=== PATIENT | male | born 1935 | race Caucasian/White ===

== ENCOUNTER 2023-11-25 21:27 | Inpatient (IN) | payer OTHER, SELFPAY ==
[2023-11-25] VITALS (9 sets, daily range): BP systolic 117–149; BP diastolic 63–69; BMI 27.5; BMI 28.8
--- NOTE | 2023-11-25 19:06 | ED.GENMED ---
History of Present Illness
General
Chief Complaint: Breathing Problem
Source: patient and family (DAUGHTER)
Exam Limitations: none
Time Seen by Provider: 11/25/23 18:53
Travel History
Have you had any contact with someone who has COVID-19?: No
Do you have any symptoms of coronavirus? Fever > 100 degrees, chills, cough, shortness of breath, sore throat, loss of taste or smell, muscle aches, or headache?: No
History of Present Illness
History of Present Illness:
This is a 88 year old male that is brought in by family with c/o SOB. Daughter states that he has been wheezing, has not energy and SOB. States that she noticed the wheezing last week but today when she called he had Audible wheezing over the phone.
State that she told him he was coming to the hospital. States that he has been dizzy with any activity. Denies any fever, chills, chest pain, abd pain, nausea, vomiting, diarrhea, headache, urinary burning.
Past History
Past History
ED Past Medical History: CAD, Cancer (Skin CA), HTN, Hypercholesterolemia, NM, Hypothyroidism and Other (Hernia, AAA, Aortic stenosis, LBBB, Mitral regurgitation)
ED Past Surgical History: Cardiac (CABG, Stent X 2), Tonsilectomy and Other (Hemorrhoids, )
Social History
Tobacco: Former smoker
Alcohol: Occasional
Personal:
Living: alone
Review of Systems
Review of Systems
All Other Systems: ROS reviewed and negative except as documented in HPI and ROS
Constitutional: Reports no symptoms; Denies fever or chills
EENT: Reports no symptoms
Respiratory: Reports trouble breathing; Denies cough
Cardiac: Denies chest pain
ABD/GI: Reports no symptoms; Denies abdominal pain, nausea, vomiting or diarrhea
: Reports no symptoms; Denies dysuria, frequency or urgency
Musculoskeletal: Reports no symptoms
Skin: Reports no symptoms
Neurological: Reports dizzy (with activity); Denies headache
Psychiatric: Reports no symptoms
Phy Exam
General Physical Exam
General Presentation: mild distress
General age: appears stated age
General Skin: warm and dry
General Habitus: elderly
General Mental: alert
General Hydration: appears well hydrated
ENT Exam
ENT Exam: TM's normal, pharynx normal and neck supple
Eye Exam
Eye Exam: EOMI
Cardiovascular Exam
Cardiovascular Exam: regular rate/rhythm, normal peripheral pulses and other (Murmur)
Pulmonary Exam
Pulmonary Exam: no rales, chest non tender, no crackles, no rhonchi, no cough, decreased breath sounds and other (Audible wheezing noted)
Gastrointestinal Exam
Gastrointestinal Exam: normal bowel sounds, non tender, soft, no organomegaly, no pulsatile mass, non distended and other (Rectal exam hem negative)
Musculoskeletal Exam
Musculoskeletal Exam: full ROM and edema (+2 pitting edema of the feet to the knee's)
Skin Exam
Skin Exam: normal color, warm/dry, no rash and no petechia
Psychiatric Exam
Psychiatric Exam: normal mood/affect
Scores
Heart Failure Risk
Heart Failure Risk Score: Yes
History of Stroke or TIA: No
History of intubation for respiratory distress: No
Heart rate on ED arrival >/= 110: No
SaO2 <90% on arrival on room air: No
HR >/=110 during 3min walk test (or too ill to perform test): Yes
ECG has acute ischemic changes: No
Urea >/=12mmol/L (BUN 33.6mg/dL): Yes
Serum CO2>/=35mmol/L: No
Troponin I or T elevated to NM Level (0.4mg/dL): No
NT-proBNP >/=5,000ng/L (5,000pg/ml): No
HF Risk Score: 3
Admission Status: HIGH RISK 15.9% Consider SNF treatment or admission to hospital
Course
Orders/Labs/Results
Orders:
Orders
11/25/23 19:04
Dexamethasone Sod Phosphate [Decadron] 20 mg IV NOW STA
Ipratropium/Albuterol Sulfate [Duoneb] 3 ml INH R NOW ONE
11/25/23 19:05
CR Chest - 2 Views Urgent
Comment:
Reason For Exam: sob
11/25/23 19:08
Electrocardiogram (*1) Urgent
Reason for Study: Shortness of Breath
EKG- Treatment ONCE
COVID-19 Antigen Urgent
Source: Nasal Swab
Complete Blood Count/With Diff Urgent
Comprehensive Metabolic Panel Urgent
NT-proBNP Urgent
Troponin I Urgent
11/25/23 19:33
* Blood Bank Products Urgent
Blood Bank Products: *Packed RBC Leuko(PRBC's)
Quantity: 2
Transfuse Today: Yes
Reason: Anemia
IV Insert/Care/Rem.- Treatment PRN
11/25/23 19:38
Type And Crossmatch Urgent
Abnormal Lab Results
11/25/23
19:08
RBC 3.18 L 10^6/uL
(4.70-6.10)
Hgb 7.3 L g/dL
(13.0-18.0)
Hct 23.3 L %
(39.0-52.0)
MCV 73.3 L fL
(80.0-94.0)
MCH 23.0 L pg
(27.0-31.0)
MCHC 31.3 L g/dL
(33.0-37.0)
RDW 16.4 H %
(11.5-14.5)
Absolute Monos (auto) 1.1 H 10^3/uL
(0.1-0.6)
Lymphocytes % 14.8 L %
(20.5-51.1)
Monocytes % 13.2 H %
(1.7-9.3)
BUN 34 H mg/dl
(9-20)
Glucose 139 H mg/dl
(70-99)
11/25/23 19:08
11/25/23 19:08
H/H very low (symptomatic anemia), Glucose nonfasting. Troponin 0.019, Pro-BNP 1680, BUN elevation, COVID negative.
Vital Signs
Initial and Last Documented VS:
Initial Vital Signs
Temp Pulse Resp BP Pulse Ox
98.2 F 74 24 136/69 97
11/25/23 18:49 11/25/23 18:49 11/25/23 18:49 11/25/23 18:49 11/25/23 18:49
Last Documented Vital Signs
Temp Pulse Resp BP Pulse Ox
98.2 F 69 17 144/68 88
11/25/23 18:49 11/25/23 19:30 11/25/23 19:30 11/25/23 19:19 11/25/23 19:55
MDM/Problems Addressed
Differential Diagnosis Includes:
CHF, Wheezing,
MDM/Problems Addressed:
This is a 88 year old male that comes in with c/o SOB. Daughter states that he started with wheezing a week ago. Today when she called she could hear the wheezing over the phone. States that he has been dizzy with activity.
Will get labs. Give Duo neb, Steroids and chest x-ray.
Explained to patient that his Hgb is low and he will be admitted. Blood consent signed and ordered 2 units. States that he felt better after the neb treatment. Will admit after chest x-ray
Back into see patient and family. Explained that his Chest x-ray also shows CHF. Will give IV Lasix and a second Duo as breath sounds remain decreased with some faint wheezing. Hospitalist notified.
Chronic conditions affecting care: CAD
Acute Exacerbation and/or Progression of Chronic Illness: CAD
*Radiology
Radiology exam reviewed: radiology read reviewed (Chest- Findings most consistent with CHF)
*Pulse Oximetry
Patient hypoxic: no
*EKG
Interpreted by ED Provider?: Yes
Heart Rate: 60
Rate: normal
Rhythm: sinus
[place]: normal axis
Interval: normal interval
QRS Pattern: normal QRS
Ischemia: no ischemia (Checked by Dr. Ramos)
*Dialysis Clinical Manager Interpretation
Rate: normal
Heart Rate: 80
Rhythm: sinus
*Critical Care Note
Total Time (30-74mins, 75-104mins- exclusive of procedures): Not Applicable
ED Attending Note
-
Portions of this chart may have been created with voice recognition software.� Occasional wrong word or��sound alike� substitutions may have occurred due to the inherent limitations of voice recognition software.
Discharge Plan
Departure
Patient Disposition: Admit
Date of Disposition: 11/25/23
Time of Disposition: 20:16
Admit to: Telemetry
Presentation/result/management discussed w/ accepting MD/DO: Hospitalist
Patient with high blood pressure during this ER visit?: Yes
Condition: Good
Covid-19: Negative COVID-19
Discharge Problem:
CHF (congestive heart failure), Symptomatic anemia
Prescriptions:
No Action
ramipril 10 MG capsule
10 mg PO DAILY
fish oil-dha-epa 1 EACH capsule
1,200 mg PO DAILY
levothyroxine 25 MCG tablet
25 mcg PO DAILY
amlodipine 10 MG tablet
10 mg PO DAILY
aspirin 81 MG tablet,chewable
81 mg PO DAILY
finasteride 5 MG tablet
5 mg PO DAILY
rosuvastatin 20 MG tablet
20 mg PO QPM
multivitamin with folic acid [Tab-A-Ct] 1 TABLET tablet
1 tab PO DAILY
Interventions
Interventions:
*Risk Screen - Suicide Last Done: 11/25/23 18:49
*General Assessment Last Done: 11/25/23 18:58
*Neglect/Abuse Screening Last Done: 11/25/23 18:49
ED- Fall Risk Assessment Last Done: 11/25/23 18:58
ED- Cardiac Assessment Last Done: 11/25/23 18:58
ED- Pulmonary Assessment Last Done: 11/25/23 18:58
[2023-11-25] MEDS: DUONEB 3 ML INH ×2 (19:10→20:27)
[2023-11-25] MEDS: DECADRON 20 MG IV (19:16)
[2023-11-25 19:18] LABS: % Basophils 0.5 % (0-2); % Eosinophils 1.1 % (0-6); % Immature Granulocytes 0.5 % (0-0.5); % Lymphocytes 14.8 % (20.5-51.1); % Monocytes 13.2 % (1.7-9.3); % Neutrophils 69.9 % (42.2-75.2); Absolute Eosinophils 0.1 10^3/uL (0-0.7); Absolute Lymphocytes 1.2 10^3/uL (1.2-3.4); Absolute Monocytes 1.1 10^3/uL (0.1-0.6); Absolute Neutrophils 5.8 10^3/uL (1.4-6.5); Hematocrit 23.3 % (39.0-52.0); Hemoglobin 7.3 g/dL (13.0-18.0); Mean Corp Hgb Conc. 31.3 g/dL (33.0-37.0); Mean Corpuscular Volume 73.3 fL (80.0-94.0); Mean Platelet Volume 9.7 fL (7.4-10.4); Nucleated Red Blood Cells % 0 % (-); Platelet Count 244 10^3/uL (130-400); Red Blood Cell Count 3.18 10^6/uL (4.70-6.10); Red Cell Dist. Width 16.4 % (11.5-14.5); White Blood Cell Count 8.3 10^3/uL (4.8-10.8)
[2023-11-25 19:32] LABS: COVID-19 Antigen Negative (Negative)
[2023-11-25 19:37] LABS: ALT (SGPT) 18 U/L (0-50); AST (SGOT) 24 U/L (17-59); Albumin 3.6 g/dl (3.5-5.0); Alkaline Phosphatase 66 U/L (38-126); Blood Urea Nitrogen 34 mg/dl (9-20); Calcium 9.1 mg/dl (8.4-10.2); Carbon Dioxide 23 mmol/L (22-30); Chloride 105 mmol/L (98-107); Estimated Creatinine Clearance 54 ml/min; Glucose 139 mg/dl (70-99); Potassium 4.3 mmol/L (3.5-5.1); Sodium 138 mmol/L (135-145); Total Bilirubin 0.9 mg/dl (0.2-1.3); Total Protein 6.3 g/dl (6.3-8.2); eGFR > 60.00
[2023-11-25 19:49] LABS: NT-proBNP 1680 pg/ml; Troponin I 0.019 ng/ml
--- NOTE | 2023-11-25 20:13 | HPS.HSE ---
Addendum entered and electronically signed by Vivek Bernstein DO 11/25/23 21:40:
Patient seen and examined independently. Agree with findings and plan as set forth by GUIDO Acuña.
Patient is an 88y M with PMH significant for ASCVD, hypertension and valvular heart disease who presents to ED complaining of weakness, fatigue and SOB. Patient states that symptoms have been present for several weeks, but have been much more
severe over the past week. He has also noted new swelling in the legs over the past week. He reports weight gain of about 10 lbs. Patient denies any prior history of heart failure and does not take diuretics.
Patient is noted to have significant anemia with Hgb = 7.3. Family states that he was noted to have less severe anemia last year. 08/2023 he underwent GI evaluation including EGD and colonoscopy at [facility]. Work-up was reportedly unremarkable.
Patient has not noted any subjective evidence of blood loss, bloody / black stools, etc.
Ass:
Acute HF - Unknown Type
Acute Hypoxemic Respiratory Failure secondary to the above
Microcytic Anemia - Likely chronic / progressive
Chest Pain
ASCVD
Valvular Heart Disease
AAA
Benign Hypertension
Hypothyroidism
BPH
Plan:
Admit for further evaluation and treatment.
IV Lasix given in the ED - will continue with 20mg BID for now.
Follow I/Os, daily weights, etc.
Echo in AM to identify type of CHF.
Cardiology evaluation for additional recommendations.
Follow troponin to rule out new ischemia.
Continue usual outpatient CV med regimen including ASA, statin, etc.
Transfusion ordered in the ED. Suspect Hgb is slightly factitiously low secondary to hypervolemia.
Follow for changes in H&H s/p transfusion and diuresis.
Check iron studies, etc.
Note prior GI eval (08/2023) that was reportedly unremarkable. ? capsule study needed. ? Heme eval.
Follow for clinical improvement with diuresis and improvement in anemia.
Original Note:
Family Physician
-
Family Physician:
Chief Complaint
-
sob
weight gain
History of Present Illness
88 year old with with PMH for CAD, HTN, HLD, [place], hypothyroidism, , MR presented to us with worsening sob for few months. got worse for past few days. sob worse with activity. denied orthopnea. stated some chest heaviness. today he noticed
worsening LE edema. stated weight gain of 10lbs in past few days. stated non productive cough. denied ONOFRE, dizzy or syncopal episode. denied fever, chills. denied abdominal pain, n,v,d. denied dysuria or hematuria.
patient requiring 2l of oxygen. patient received steroids, nebs and Lasix in ER. admitting fo further management of CHF.
Medical History
Past Medical History
Past Medical History: Reports Other
Additional Past Medical History:
CAD
skin ca
HTN
HLD
[place]
Hypothyroidism
AAA
aortic stenosis
LBBB
mitral regurgitation
Past Surgical History: Reports Other
Additional Past Surgical History:
coronary artery bypass graft
cardiac stent x2
tonsillectomy
hemorrhoidectomy
Social History
Tobacco: Non-smoker
Alcohol: Occasional
Drug: None
Family History
Family History: Not pertinent
Allergies / Home Medications
Allergies reflects when Allergies were last updated in [facility].
Home Medications with original date entered in [facility]
Allergy/Medication List:
Allergies
Allergy/AdvReac Type Severity Reaction Status Date / Time
No Known Allergies Allergy Verified 11/25/23 18:51
Home Medications
fish oil-dha-epa 1,200 mg-144 mg-216 mg capsule 1,200 mg PO DAILY Supplement 12/27/12
ramipril 10 mg capsule 10 mg PO DAILY Blood pressure 12/27/12
amlodipine 10 mg tablet 10 mg PO DAILY Blood pressure 12/04/21
aspirin 81 mg chewable tablet 81 mg PO DAILY Blood clot prevention/tx 12/04/21
finasteride 5 mg tablet 5 mg PO DAILY Urinary issue 12/04/21
levothyroxine 25 mcg tablet 25 mcg PO DAILY Thyroid 12/04/21
multivitamin with folic acid 400 mcg tablet (Tab-A-Ct) 1 tab PO DAILY Supplement 12/04/21
rosuvastatin 20 mg tablet 20 mg PO QPM High cholesterol 12/04/21
Review of Systems
-
Constitutional: Reports No Symptoms and Weight Gain
EENT: Reports No Symptoms
Respiratory: Reports Cough and Trouble Breathing
Cardiac: Reports No Symptoms and Chest Pain
: Reports No Symptoms
Musculoskeletal: Reports No Symptoms and Edema (b/l LE edema)
Skin: Reports No Symptoms
Neurological: Reports No Symptoms
Endocrine: Reports No Symptoms
Hematologic/Lymphatic: Reports No Symptoms
Psych: Reports No Symptoms
Physical Exam
Vital Signs
Vital Signs
Temp Pulse Resp BP Pulse Ox
98.2 F 69 17 144/68 88
11/25/23 18:49 11/25/23 19:30 11/25/23 19:30 11/25/23 19:19 11/25/23 19:55
Physical Exam
General: Well Developed, Well Nourished and No Apparent Distress
HEENT: NormoCephalic, Moist mucous membranes and Atraumatic
Respiratory: Clear and Decreased Breath Sounds
Cardiac: S1/S2 and Regular Rhythm; No Murmur or Rub
GI: Soft, Non Tender, Non Distended and Normal Bowel Sounds; No Organomegaly
Rectal: Deferred by Provider
Musculoskeletal: No Clubbing, No Cyanosis and Other (b/l LE edema)
Skin: No Rash
Neuro: AO x 3 and Nonfocal/grossly intact
Laboratory Results
-
11/25/23 19:08
11/25/23 19:08
Laboratory Results
Total Bilirubin 0.9 mg/dl (0.2-1.3) 11/25/23 19:08
AST 24 U/L (17-59) 11/25/23 19:08
ALT 18 U/L (0-50) 11/25/23 19:08
Alkaline Phosphatase 66 U/L (38-126) 11/25/23 19:08
Troponin I 0.019 ng/ml 11/25/23 19:08
Data Reviewed
-
Diagnostic Radiology: Report Reviewed by me
Lab Data: Labs Reviewed by me
Impression/Plan
-
#symptomatic anemia likely iron def anemia
-obtain B12, ferritin, folate, TIBC
-Hematest stools
-denied any active bleeding
-transfusing with 2 units of RBC
#acute hypoxic respiratory failure likely new onset CHF/chest heaviness
-chest x ray with Findings most consistent with congestive heart failure.
-BNP 1680,trop 0.019
-received a dose of Lasix 40 in ER
-trend trop
-Lasix 20mg iv bid
-obtain eCHO
-cardiology consulted
#Hypertension
-Norvasc continued
-rampiril continued
#AAA
#CAD with CABG
-aspirin continued
#BPH
-Flomax continued
#hypothyroidism
-levothyroxine continued
#HLD
-statin
#DVT prophylaxis: Lovenox
#CODE status
-full code
[2023-11-25] MEDS: LASIX 40 MG IV (20:27)
[2023-11-25 21:03] LABS: Iron 33 ug/dl (49-181)
[2023-11-25 21:13] LABS: Percent Saturation 7 % (20-50); Total Iron Binding Capacity 455 ug/dl (261-462)
[2023-11-25 21:40] LABS: Ferritin 6.5 ng/ml (17.9-464.0)
[2023-11-25 21:54] LABS: Vitamin B12 661 pg/ml (239-931)
[2023-11-26] VITALS (19 sets, daily range): BP systolic 119–150; BP diastolic 60–120; PULSE 63; O2SAT 97; BMI 28.8; BMI 28.5
--- NOTE | 2023-11-26 00:19 | PTCARENOTE ---
Received patient from ED via stretcher into room 3753. Patient ambulated w/ standby assist, and denies any dizziness. Family at bedside and aware of POC. Tele shows SR w/ PVCs. Patient denies any palpitations or any discomfort. Patient sating 97% on
2L of O2, and has a frequent moist cough. Patient becomes HAHN and has an audible wheeze when standing at bedside to void. Patient voiding w/out difficulty a clear yellow urine. Patient aware to void in urinal for accurate I/Os. 1st unit of blood
currently infusing. Patient aware of POC, and oriented to room. Call major within reach.
[2023-11-26 02:29] LABS: Troponin I 0.022 ng/ml
--- NOTE | 2023-11-26 06:25 | PTCARENOTE ---
2 units of PRBCs infused w/out difficulty, call major in reach.
[2023-11-26] MEDS: LASIX 20 MG IV ×2 (08:02→15:52)
[2023-11-26] MEDS: FLUSH (NSS) 1 FLUSH IV (08:02)
[2023-11-26] MEDS: ALTACE 10 MG PO (08:03)
[2023-11-26] MEDS: SYNTHROID 25 MCG PO (08:03)
[2023-11-26] MEDS: PROSCAR 5 MG PO (08:03)
[2023-11-26] MEDS: NORVASC 10 MG PO (08:03)
[2023-11-26] MEDS: LOW STRENGTH ASPIRIN 81 MG PO (08:03)
[2023-11-26 08:33] LABS: Hematocrit 29.1 % (39.0-52.0); Mean Corp Hgb Conc. 32.3 g/dL (33.0-37.0); Mean Corpuscular Hgb 24.2 pg (27.0-31.0); Mean Platelet Volume 9.1 fL (7.4-10.4); Platelet Count 213 10^3/uL (130-400); Red Blood Cell Count 3.88 10^6/uL (4.70-6.10); Red Cell Dist. Width 16.8 % (11.5-14.5); White Blood Cell Count 5.8 10^3/uL (4.8-10.8)
[2023-11-26 08:35] LABS: Hemoglobin 9.4 g/dL (13.0-18.0)
[2023-11-26 09:04] LABS: Troponin I 0.026 ng/ml
[2023-11-26 09:13] LABS: AST (SGOT) 30 U/L (17-59); Albumin 3.8 g/dl (3.5-5.0); Alkaline Phosphatase 55 U/L (38-126); Blood Urea Nitrogen 27 mg/dl (9-20); Carbon Dioxide 25 mmol/L (22-30); Chloride 100 mmol/L (98-107); Direct Bilirubin 0.3 mg/dl (0.0-0.4); Estimated Creatinine Clearance 56 ml/min; Glucose 144 mg/dl (70-99); HDL Cholesterol 60 mg/dl; LDL Cholesterol, Calculated 28 mg/dl; Magnesium 2.1 mg/dl (1.6-2.3); Potassium 4.1 mmol/L (3.5-5.1); Sodium 137 mmol/L (135-145); Total Bilirubin 1.5 mg/dl (0.2-1.3); Total Cholesterol 96 mg/dl (50-199); Total Protein 6.7 g/dl (6.3-8.2); Triglyceride 41 mg/dl (10-149); Very Low Density Lipoprotein 8 mg/dl (0-30); eGFR > 60.00
--- NOTE | 2023-11-26 09:17 | W.PN.HOSP.TC ---
Today's Communication/Plan
-
Continue IV diuresis. Echocardiogram.
Assessment / Plan
Assessment / Plan
Physical exam:
General: Well Developed, Well Nourished and No Apparent Distress
HEENT: Normocephalic, Atraumatic and Moist Mucous Membranes
Respiratory: Bilateral crackles; Negative Wheezes or Rhonchi
Cardiac: Regular Rhythm and S1/S2. Systolic ejection murmur in left sternal border.
GI: Soft, Nontender and Nondistended
Musculoskeletal: No Clubbing, No Cyanosis and No Edema
Neuro: Awake, Alert and Oriented
Psych: Calm
A/P:
#symptomatic anemia likely iron def anemia
-obtain B12, ferritin, folate, TIBC--> normal B12 and folate; iron deficiency parameters positive.
-Hematest stools
-denied any active bleeding
-transfusing with 2 units of PRBC-->Hemoglobin up to 9.4 today
-Discussed with daughter who tells me he had upper endoscopy and colonoscopy just last year without significant findings. No evidence of hemolysis either. Possibility as an etiology of aortic valve causing anemia or slow occult bleed from small
bowel testing for which he will require capsule endoscopy and other further workup as outpatient with GI. Will refer to GI as outpatient as discussed with daughter at bedside today.
#acute hypoxic respiratory failure likely new onset CHF/chest heaviness
-chest x ray with Findings most consistent with congestive heart failure.
-BNP 1680,trop 0.019
-received a dose of Lasix 40 in ER
-trend trop
-Lasix 20mg iv bid
-obtain eCHO
-cardiology consulted
# Acute diastolic congestive heart failure
-IV diuretics, Lasix 20 mg IV twice a day
-Monitor strict I/O
-Monitor daily weight
-Monitor renal function and electrolytes
-Reviewed latest echocardiogram on our system
-Continue guideline-directed medical therapy for heart failure (GDMT)
-Follow up clinical response
#Severe aortic stenosis
-Will need to contemplate TAVR in the near future but will defer to cardiology
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
#Hypertension
-Norvasc continued
-rampiril continued
#AAA
#CAD with CABG
-aspirin continued
#BPH
-Flomax continued
#hypothyroidism
-levothyroxine continued
#HLD
-statin
#DVT prophylaxis: Lovenox
#CODE status
-full code
Total time spent on today's encounter was 52 minutes which included time spent in counseling the patient/family regarding diagnosis and treatment plan as listed above, goals of care, and symptom management. Case was discussed with nursing staff,
specialists, and care coordinators/case management. All labs and imaging personally reviewed by me. Remainder the time spent in detailed review of previous records, lab data, imaging, and other medical provider documentation.
Anticipated Discharge: > 48 hours
Subjective/Interval History
-
Date of Service: November 26, 2023
Patient still short of breath but overall improving. No chest pain. Afebrile
Objective Data
-
Labs:
Laboratory Results
11/26/23
08:22
WBC 5.8
Hgb 9.4 L D
Hct 29.1 L
Plt Count 213
Sodium 137
Potassium 4.1
Chloride 100
Carbon Dioxide 25
BUN 27 H
Creatinine 0.8
Glucose 144 H
Calcium 9.0
Total Bilirubin 1.5 H
AST 30
ALT Pending
Alkaline Phosphatase 55
Vital Signs:
Vital Signs
Temp Pulse Resp BP Pulse Ox
97.7 F 71 20 133/77 97
11/26/23 07:01 11/26/23 09:00 11/26/23 07:01 11/26/23 08:03 11/26/23 08:30
I&O
11/25/23 11/26/23 11/27/23
06:59 06:59 06:59
Intake Total 620 / 620
Output Total 2525 / 2525
Balance -1904 / -1904
Review of Systems
-
All other systems: Reviewed and negative
--- NOTE | 2023-11-26 09:20 | CON.CAR ---
Addendum entered and electronically signed by Grzegorz Flood MD 11/26/23 11:32:
I saw and examined the patient.
The INSURANCE SALESPERSON's note was reviewed and I agree with the note.
Comment: 88 y/o male (follows with Dr. Beasley) with CAD s/p CABG 2000, PCI to RCA 2012, bradycardia, hypertension, dyslipidemia, aortic stenosis (moderate by echo here 2021), thoracic aortic ectasia, hypothyroidism, and BPH who is here for
evaluation of cough, SOB, and fatigue. There is weight gain (10 lbs).
Additionally, he now has severe , we will discuss possible TAVR in future for him.
- Cont IV diuresis
- anemia work up per primary
Original Note:
Consultation
Consultation Request
Date/Time Consultation Requested: 11/25/232042
Date/Time Consultation Performed: 11/26/23 0900
Requesting Provider: Thu Perry
Performing Provider: Aileen LORA for Dr. Flood
Reason for Consultation: CHF
Medical History
-
Chief Complaint: SOB, fatigue, cough
History of Present Illness:
88 y/o male (follows with Dr. Beasley) with CAD s/p CABG 2000, PCI to RCA 2012, bradycardia, hypertension, dyslipidemia, aortic stenosis (moderate by echo here 2021), thoracic aortic ectasia, hypothyroidism, and BPH who is here for evaluation of
cough, SOB, and fatigue. There is weight gain (10 lbs). Symptoms present x 1 week. He is seen to be anemic with hgb 7.3 (improved s/p 2 units PRBC's). He was wheezing and was given steroids and nebs; denies history of COPD- former smoker remotely.
Finally, CXR was suggestive of CHF and he is being diuresed.
Past Medical History
Past Medical History: CAD, HTN, Hypercholesterolemia, Hypothyroidism, Valvular Disease and Other (as above)
Social History
Tobacco: Former Smoker
Family History
Family History: Reviewed & Not Pertinent
Allergies / Home Medications
Allergy/AdvReac Type Severity Reaction Status Date / Time
No Known Allergies Allergy Verified 11/25/23 18:51
Medication Instructions Recorded Confirmed Type
ramipril 10 mg capsule 10 mg PO DAILY Blood pressure 12/27/12 11/26/23 History
amlodipine 10 mg tablet 10 mg PO DAILY Blood pressure 12/04/21 11/25/23 History
aspirin 81 mg chewable tablet 81 mg PO DAILY Blood clot 12/04/21 11/25/23 History
prevention/tx
finasteride 5 mg tablet 5 mg PO DAILY Urinary issue 12/04/21 11/25/23 History
levothyroxine 25 mcg tablet 25 mcg PO DAILY Thyroid 12/04/21 11/25/23 History
rosuvastatin 20 mg tablet 20 mg PO QPM High cholesterol 12/04/21 11/25/23 History
Review of Systems
-
History Source: Patient
All other systems: Negative unless noted
Constitutional: Weight Gain and Fatigue
Respiratory: Cough and Trouble Breathing
Musculoskeletal: Edema
Physical Exam
Vital Signs
Temp Pulse Resp BP Pulse Ox
97.7 F 71 20 133/77 97
11/26/23 07:01 11/26/23 09:00 11/26/23 07:01 11/26/23 08:03 11/26/23 08:30
Lab Results
11/26/23 08:22
11/26/23 08:22
Troponin I 0.026 ng/ml 11/26/23 08:22
[id number] Pept 1680 pg/ml 11/25/23 19:08
Physical Exam
General: Well Developed, Well Nourished and No Apparent Distress
HEENT: Normocephalic and Anicteric
Respiratory: Wheezes and Other (lung sounds diminished to bases; on O2 by NC)
Cardiac: Regular Rhythm
GI: Soft, Non Distended and Normal Bowel Sounds
Musculoskeletal: Edema (mild-moderate BLE edema)
Skin: Warm and Dry
Neuro: AO x 3
Psych: Calm
Impression / Plan
-
Anemia: significant
-improved s/p 2 units PRBC's
-management per primary team
Acute HF (diastolic based on echo 2021, but will update echo):
-edema, weight gain, SOB, elevated BNP, abnormal CXR
-update echo
-agree with IV diuresis, which requires intensive monitoring
Aortic stenosis:
-moderate by echo 2021
-update echo
CAD s/p CABG and PCI:
-trops and EKG unremarkable
-no CP
-continue ASA, statin
HTN:
-monitor BP and continue ramipril and amlodipine
Records from Dr. Beasley personally requested by me
Data Reviewed
-
EKG: Tracing Personally Visualized and interpreted (NSR 60 BPM, NS ST abnormalities, no acute change from previous)
Radiology: Report Reviewed by me (CXR: findings most consistent with CHF)
Medical Tests (Nuc Med, Echo etc): Report Reviewed by me (echo 12/05/21: Echo 12/05/21: LVEF 60-65%. Stage I DD. Moderate aortic stenosis. Peak/mean gradients 48/26 mmHg. ANALILIA is 1.1 cm2. Moderate tricuspid regurgitation. Mildly elevated PASP 38 mmHg.
Ectatic proximal ascending aorta 3.6 cm.)
Labs: Labs Reviewed by me
Old Records: Requested
--- NOTE | 2023-11-26 09:23 | PTCARENOTE ---
echo being done at bedside.
[2023-11-26 09:34] LABS: ALT (SGPT) 25 U/L (0-50)
[2023-11-26 09:58] LABS: TSH Reflex To Free T4 0.94 uIU/ml (0.47-4.68)
--- NOTE | 2023-11-26 10:35 | CM ---
Reviewed chart. Met with Mr. Valle to review discharge plans. He states prior to admission he resides alone in a three story home without any steps. He states he has a a first floor set-up. He states prior to admission he was independent with
ambulation and adls. He states he does not have any DME in the home. He states he has had [facility] in the past and he has never been to SNF/Rehab. He states he has a prescription plan and does mail order and [facility]. Will need to see his
current functional level to see if he will have any skilled care needs. Medical work-up in progress. The discharge plan is to return home with [facility] if indicated when medically stable.
[2023-11-26 11:33] LABS: Folate 11.3 ng/ml (2.76-20)
--- NOTE | 2023-11-26 14:00 | PTCARENOTE ---
report given to soap slabber for heart cath. family at bedside.
--- NOTE | 2023-11-26 15:20 | ITS.CL.CATH ---
Remote Encoding Center Manager - Catheterization
Cardiac Catheterization
Procedure Report:
CARDIAC CATHETERIZATION REPORT
Date of Procedure: 11/26/2023
Referring: Franky Velázquez M.D.
Indication: Congestive heart failure, new, severe aortic valve stenosis.
PROCEDURE:
1. Right heart catheterization.
2. Left heart catheterization.
3. Coronary angiography.
4. Bypass graft angiography
ACCESS:
6 [place] left radial artery.
5 [place] left and cubital vein.
CATHETERS:
1. 5 [place] balloon wedge.
2. 5 [place] TIRSO (PATEL graft).
3. 5 [place] JL 4 (LMCA).
4. 5 [place] JR4 (SVG to OM).
5. 5 [place] AL-1 (RCA).
6. 5 [place] MP 2 (SVG to RPDA).
HEMODYNAMIC DATA
Weight (kg): 80.1
AO (s/d/x mmHg): 134/68/91
LV (s/x mmHg): Not obtained.
PCWP (a/v/x mmHg): 36/44/34
PA (s/d/x mmHg): 59/30/40
RV (s/x mmHg): 59/21
RA (a/v/x mmHg): 25/24/21
SVC SvO2 (%): 65.0
PA SvO2 (%): 56.6
SaO2 (%): 94.2
Hbg (g/dL): 8.9
CO (L/min): 4.56
CI (L/min/m2): 2.40
TPG (mmHg): 16
PVR (Rodriges Units): 3.51
SVR (dynes*seconds*cm^-5): 1228
AVO2 Diff (Volume %): 4.55
AV gradient (x, mmHg): Not obtained.
AV area (cm2): Not obtained.
LEFT VENTRICULOGRAPHY: Not performed.
CORONARY ANGIOGRAPHY
Dominance: Right.
Left Main: Normal size, bifurcating vessel. There is no coronary artery disease.
LAD: Normal size vessel giving rise to at least 1 diagonal. The vessel is chronically totally occluded at its proximal margin. The distal vessel is supplied by a patent PATEL graft. There is a 30-40% lesion in the distal LAD.
Ramus: Congenitally absent.
Circumflex: Normal size, nondominant vessel giving rise to 1 significant marginal. The vessel is chronically totally occluded in its proximal margin. The obtuse marginal is supplied by a patent vein graft. The distal circumflex is supplied by
collaterals from the right coronary artery.
RCA: Normal size, dominant vessel. Patent stents are observed in the proximal vessel as well as in the distal vessel/RPL. The RPDA is chronically totally occluded at its origin and supplied by a patent vein graft.
BYPASS GRAFT ANGIOGRAPHY
PATEL to LAD: Normal size graft with end-to-side anastomosis to the mid vessel. There is no evidence of stenosis or graft degeneration.
SVG to OM1: Normal size graft with end-to-side anastomosis to the first obtuse marginal. There is no evidence of stenosis or graft degeneration.
SVG to RPDA: Relatively small graft with end-to-side anastomosis to the RPDA. There is a 30% lesion in the distal graft.
INTERVENTIONS
None.
Closure Device: Vascular band for the left radial artery, manual pressure for the left antecubital vein.
Radiation dose (mGy): 605.74
DAP (cm2.Gy): 55.7181
Fluoroscopy time (minutes): 15.6
Sedation time (minutes): 30
CONCLUSIONS:
1. Right dominant circulation with a chronic total occlusion of the proximal LAD, 30-40% lesion in the distal LAD, a chronically totally occluded proximal circumflex and a chronically totally occluded RPDA with patent stents in the proximal and
distal RCA, status post prior bypass (patent PATEL to LAD, patent SVG to OM1, patent SVG to RPDA) with right to left collaterals to the distal circumflex.
2. Severely elevated filling pressures (PCWP = 34 mmHg at 80.1 kg).
3. Severe aortic valve stenosis by echocardiogram.
4. Preserved cardiac function (cardiac index = 2.4 L/min/m�).
RECOMMENDATIONS:
1. Expectant management after cardiac catheterization via left radial/antecubital approach.
2. Limited weight bearing on the left wrist for one week.
3. Continue aggressive diuresis and treatment of congestive heart failure.
4. TAVR workup.
Copy to: Franky Velázquez M.D., Derrell Lucero D.O.
Familia Joiner DO, FACC, FACP
--- NOTE | 2023-11-26 15:38 | PTCARENOTE ---
patient returned from laboratory immunologist with left radial R band and left brachial site. left brachial site had blood on dsg. changed dsg., no oozing, no hematoma, distal pulse weak. instructed patient to keep left arm Straight, verbalizes understanding. INT
was changed to right ant. #20. patient and family voices no concerns at this time.
--- NOTE | 2023-11-26 15:53 | CONSULT.STRU ---
Addendum entered and electronically signed by GUIDO Johnson 12/21/23 07:18:
Reviewed patient with the heart team in the SDM meeting. The team is agreeable patient is an appropriate candidate for TF TAVR utilizing a 26 mm S3. Will call to schedule.
Original Note:
Consultation
-
Date/Time Consultation Requested: 11/26/2023 15:30
Date/Time Consultation Performed: 11/27/2023 08:00
Requesting Provider: Familia Joiner DO
Performing Provider: GUIDO Johnson
Reason for Consultation: /TAVR
Patient History
Physicians
Family Physician: Derrell Lucero DO
Outpatient Entry Level Electrician: Franky Velázquez MD
Primary Entry Level Electrician: Franky Velázquez MD
History of Present Illness
Mr. Valle is a very pleasant 88 yom that presented to the ER with increased SOB. Chest x-ray was significant for CHF requiring admission. Echocardiogram from 11/26/2023 is notable for an Aortic Valve P/M 70/40, ANALILIA 0.7, Pk Rich 4.19, mild to trace
AI, EF 55-60%, Moderate MR, Moderate TR, PAP 57 mmHg. Cardiac catheterization from 11/26/2023 is significant for: Right dominant circulation with a chronic total occlusion of the proximal LAD, 30-40% lesion in the distal LAD, a chronically totally
occluded proximal circumflex and a chronically totally occluded RPDA with patent stents in the proximal and distal RCA, status post prior bypass (patent PATEL to LAD, patent SVG to OM1, patent SVG to RPDA) with right to left collaterals to the distal
circumflex. Severely elevated filling pressures (PCWP = 34 mmHg at 80.1 kg). Severe aortic valve stenosis by echocardiogram. Preserved cardiac function (cardiac index = 2.4 L/min/m�). Mr. Valle explains that he has had progressive fatigue over the
last several months requiring frequent periods of rest. Recently, his wt gain of 10#, HAHN and SOB became severe enough to prompt a visit to the ED to find he was in CHF and anemic with a hgb of 7.3 (improved after 2UPRBC). His CXR was suggestive of
CHF (improved with diuresis).
Discussed the pathophysiology and treatment options of including SAVR and TAVR. Explained the evaluation process comprising of CT scan, CT surgical consult, dental clearance, and a heart team discussion . TAVR booklet, contact information,
prescriptions, and appointments given to patient. Allowed for and answered questions at bedside.
Past Medical History
Past Medical History: Arrhythmias (bradycardia), CAD (CABG (2000), PCI-RCA (12/28/2011)), CHF (HFpEF), HTN, Hyperthyroidism, Valvular Disease (aortic stenosis) and Other (dyslipidemia, thoracic aortic ectasia, BPH, anemia)
Past Surgical History
Past Surgical History: CABG (CABG x 3 (2000 @ [facility]))
Dental History
UTD (patient states he has had recent x-rays) [facility]
Family History
Mother: at Age (100)
Father: at Age (84) and Cause of (stroke)
Social History
Alcohol: None
Drug: None
Tobacco: Former Smoker
Personal:
Living: Alone
Employment: Retired
Allergies
Allergy/AdvReac Type Severity Reaction Status Date / Time
No Known Allergies Allergy Verified 11/25/23 18:51
Home Medications
Medication Instructions Recorded Confirmed Type
ramipril 10 mg capsule 10 mg PO DAILY Blood pressure 12/27/12 11/26/23 History
amlodipine 10 mg tablet 10 mg PO DAILY Blood pressure 12/04/21 11/25/23 History
aspirin 81 mg chewable tablet 81 mg PO DAILY Blood clot 12/04/21 11/25/23 History
prevention/tx
finasteride 5 mg tablet 5 mg PO DAILY Urinary issue 12/04/21 11/25/23 History
levothyroxine 25 mcg tablet 25 mcg PO DAILY Thyroid 12/04/21 11/25/23 History
rosuvastatin 20 mg tablet 20 mg PO QPM High cholesterol 12/04/21 11/25/23 History
STS%
STS %: 4.74
Review of Systems
-
History Source: Patient
General: Reports Weight Gain (recent wt gain of 10#, improved with diuresis)
HEENT: Reports No Symptoms
Respiratory: Reports SOB and HAHN
Cardiac: Reports Other (fatigue, HAHN)
Abdomen/GI: Reports No Symptoms
: Reports No Symptoms
Neurological: Reports No Symptoms
Physical Exam
Vital Signs
Temp 98.5 F 11/26/23 11:37
Temp route: Oral 11/26/23 11:37
Pulse 62 11/26/23 13:00
Rhythm: Normal sinus rhythm 11/26/23 08:30
With- PVC's Monomorphic 11/26/23 08:30
Resp Rate 20 11/26/23 11:37
Blood pressure 144/81 11/26/23 11:39
Blood pressure extremity used: Right upper arm 11/26/23 11:37
Position: Sitting 11/26/23 11:37
MAP (cuff-Chilo Monitor) 99 11/26/23 11:39
SaO2 98 11/26/23 11:37
Nasal Cannula flow liters per minute 2 11/26/23 10:26
Oxygen Mode of Delivery Room air 11/26/23 11:37
Pulse Ox at Rest 97 11/26/23 10:26
Acceptable pain level during hospitalization? 0 11/25/23 18:49
Can the patient verbally communicate their pain? Yes 11/26/23 08:30
Actual Weight 80 kg 11/26/23 06:00
Body Mass Index (BMI) 28.5 11/26/23 06:00
Sitting- Pulse 63 11/26/23 10:26
Heart rate after activity 68 11/26/23 10:26
Blood pressure after activity 129/75 11/26/23 10:26
Oxygen Saturation with Activity 96 11/26/23 10:26
Labs
11/26/23 08:22
11/26/23 08:22
Troponin I 0.026 ng/ml 11/26/23 08:22
Ajy-O-Nktprnhyzgd Pept 1680 pg/ml 11/25/23 19:08
Diagnostic Studies
EKG 11/25/2023:
Vent. Rate : 060 BPM � � Atrial Rate : 060 BPM
�� P-R Int : 144 ms� � � � � QRS Dur : 096 ms
� � QT Int : 422 ms � � � P-R-T Axes : 000 007 041 degrees
�� QTc Int : 422 ms
�
NORMAL SINUS RHYTHM
NONSPECIFIC ST ABNORMALITY
ABNORMAL ECG
WHEN COMPARED WITH ECG OF 12-DEC-2021 23:49,
PREMATURE ATRIAL COMPLEXES ARE NO LONGER PRESENT
chest X-ray 11/25/2023:
FINDINGS:
Moderate cardiomegaly. Mild vascular congestion. Subtle interstitial prominence. Hazy attenuation at the lung bases. Small bilateral pleural effusions. No pneumothorax.
IMPRESSION:
Findings most consistent with congestive heart failure.
Echocardiogram 11/26/2023:
CONCLUSIONS
�Normal left ventricular size, wall thickness and systolic function. No regional
�wall motion abnormalities are seen. LV ejection fraction is 55-60% by Schaefer's
�method of discs. Stage II diastolic dysfunction suggestive of abnormal
�relaxation and increased filling pressures.
�Normal right ventricular size and systolic function.
�Moderate left atrial dilation.
�Mild right atrial dilation.
�Mild restriction of the posterior mitral leaflet with malcoaptation leading to
�eccentric, moderate, posteriorly directed mitral regurgitation.
�Calcified and thickened aortic valve with restricted leaflet motion and severe
�aortic stenosis and mild/trace insufficiency.
�Moderate tricuspid regurgitation.
�Mild/moderate pulmonic regurgitation.
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
�The IVC is mildly dilated with blunted inspiratory collapse.� Right atrial
�pressure estimated at 12 mmHg.
�Moderate pulmonary hypertension.� PASP estimated at 57 mmHg.
Aortic Valve
�Calcified and thickened aortic valve with restricted leaflet motion and severe
�aortic stenosis and mild/trace insufficiency. Peak/mean gradients are
�70/40mmHg. The valve area by continuity equation is 0.7cm sq, using a LVOT of
�2.1cm.
Cardiac Catheterization 11/26/2023:
CONCLUSIONS:
1.� Right dominant circulation with a chronic total occlusion of the proximal LAD, 30-40% lesion in the distal LAD, a chronically totally occluded proximal circumflex and a chronically totally occluded RPDA with patent stents in the proximal and
distal RCA, status post prior bypass (patent PATEL to LAD, patent SVG to OM1, patent SVG to RPDA) with right to left collaterals to the distal circumflex.
2.� Severely elevated filling pressures (PCWP = 34 mmHg at 80.1 kg).
3.� Severe aortic valve stenosis by echocardiogram.
4.� Preserved cardiac function (cardiac index = 2.4 L/min/m�).
RECOMMENDATIONS:
1. Expectant management after cardiac catheterization via left radial/antecubital approach.
2. Limited weight bearing on the left wrist for one week.
3.� Continue aggressive diuresis and treatment of congestive heart failure.
4.� TAVR workup.
�
Exam
General: Well Developed and Well Nourished
HEENT: Normocephalic and Moist Mucous Membranes
Neck: Trachea Midline
Respiratory: Clear
Cardiac: Murmur (IV/ NONA)
GI: Non Tender
Skin: Warm
Neuro: Awake, Alert, Oriented and AO x 3
Psych: Calm
Assessment / Plan
-
Severe symptomatic Aortic Stenosis
Continue TAVR evaluation
Trend creatinine after contrast (Rx given)-[facility]
TAVR CT scan (12/11)
CT surgical consult (T.T. 12/11)
Frailty testing and KCQ12 at consult
Continue aspirin
Will need dental clearance
Heart team discussion
Data Reviewed
-
EKG: Tracing Personally Visualized and interpreted (NSR) and Report Reviewed by me
Integration Assistant: Report Reviewed by me and Discussed with Physician
Echo: Report Reviewed by me
Radiology: Report Reviewed by me (CXR significant for CHF)
Labs: Labs Reviewed by me
Old Records: Reviewed (Dr. Velázquez's OV)
Total Time Spent with Patient (in minutes): 45
[2023-11-26] MEDS: CRESTOR 20 MG PO (17:31)
[2023-11-26] MEDS: LOVENOX 40 MG SC (19:51)
[2023-11-27] VITALS (8 sets, daily range): BP systolic 101–149; BP diastolic 56–74; PULSE 58; O2SAT 97; BMI 28.2
--- NOTE | 2023-11-27 00:07 | PTCARENOTE ---
Received pt at handoff. Tele- SB w/ PVCs. HR 40-50s. Assessment noted as documented. L radial and L brachial sites c/d/i. Pt on 2L O2 nasal cannula sating at 97%. Pt remains HAHN w/ an audible wheeze. Pt denies any palpitations or discomfort.
Currently in bed; call major w/in reach.
[2023-11-27 05:11] LABS: Hematocrit 27.3 % (39.0-52.0); Hemoglobin 8.9 g/dL (13.0-18.0); Mean Corp Hgb Conc. 32.6 g/dL (33.0-37.0); Mean Corpuscular Hgb 24.3 pg (27.0-31.0); Mean Corpuscular Volume 74.6 fL (80.0-94.0); Mean Platelet Volume 9.2 fL (7.4-10.4); Platelet Count 211 10^3/uL (130-400); Red Blood Cell Count 3.66 10^6/uL (4.70-6.10); Red Cell Dist. Width 16.9 % (11.5-14.5); White Blood Cell Count 14.4 10^3/uL (4.8-10.8)
[2023-11-27 05:32] LABS: Blood Urea Nitrogen 41 mg/dl (9-20); Calcium 8.8 mg/dl (8.4-10.2); Carbon Dioxide 27 mmol/L (22-30); Chloride 106 mmol/L (98-107); Estimated Creatinine Clearance 50 ml/min; Glucose 103 mg/dl (70-99); Magnesium 2.2 mg/dl (1.6-2.3); Potassium 4.2 mmol/L (3.5-5.1); Sodium 136 mmol/L (135-145); eGFR > 60.00
--- NOTE | 2023-11-27 08:26 | W.PN.HOSP.TC ---
Today's Communication/Plan
-
Continue IV Lasix, continue monitor hemoglobin. Eventual TAVR
Assessment / Plan
Assessment / Plan
Physical exam:
General: Well Developed, Well Nourished and No Apparent Distress
HEENT: Normocephalic, Atraumatic and Moist Mucous Membranes
Respiratory: Bilateral crackles; Negative Wheezes or Rhonchi
Cardiac: Regular Rhythm and S1/S2. Systolic ejection murmur in left sternal border.
GI: Soft, Nontender and Nondistended
Musculoskeletal: No Clubbing, No Cyanosis and less edema
Neuro: Awake, Alert and Oriented
Psych: Calm
A/P:
#symptomatic anemia likely iron def anemia
-obtain B12, ferritin, folate, TIBC--> normal B12 and folate; iron deficiency parameters positive.
-Hematest stools
-denied any active bleeding
-transfusing with 2 units of PRBC-->Hemoglobin up to 9.4--> 8.9 today
-Discussed with second daughter today on 11/27 and if hemoglobin remained stable plan to do GI evaluation as outpatient, but if hemoglobin drops or any signs of GI bleed will have GI to see him while inpatient.
-Discussed with daughter who tells me he had upper endoscopy and colonoscopy just last year without significant findings. No evidence of hemolysis either. Possibility as an etiology of aortic valve causing anemia or slow occult bleed from small
bowel testing for which he will require capsule endoscopy and other further workup as outpatient with GI. Will refer to GI as outpatient as discussed with daughter at bedside today.
#acute hypoxic respiratory failure likely new onset CHF/chest heaviness
-chest x ray with Findings most consistent with congestive heart failure.
-BNP 1680,trop 0.019
-received a dose of Lasix 40 in ER
-trend trop
-Lasix 20mg iv bid
-obtain eCHO
-cardiology consulted
# Acute diastolic congestive heart failure
-IV diuretics, Lasix 20 mg IV twice a day
-Monitor strict I/O
-Monitor daily weight
-Monitor renal function and electrolytes
-Reviewed latest echocardiogram on our system
-Continue guideline-directed medical therapy for heart failure (GDMT)
-Follow up clinical response
#Severe aortic stenosis
-Will need to contemplate TAVR in the near future but will defer to cardiology--> plan for TAVR in the immediate future per cardiology
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
#Hypertension
-Norvasc continued
-rampiril continued
#AAA
#CAD with CABG
-aspirin continued
#BPH
-Flomax continued
#hypothyroidism
-levothyroxine continued
#HLD
-statin
#DVT prophylaxis: Lovenox
#CODE status
-full code
Total time spent on today's encounter was 52 minutes which included time spent in counseling the patient/family regarding diagnosis and treatment plan as listed above, goals of care, and symptom management. Case was discussed with nursing staff,
specialists, and care coordinators/case management. All labs and imaging personally reviewed by me. Remainder the time spent in detailed review of previous records, lab data, imaging, and other medical provider documentation.
Anticipated Discharge: 24 - 48 hours
Subjective/Interval History
-
Date of Service: November 27, 2023
Patient feels better today, less shortness of breath, no chest pain. Less peripheral edema.
Objective Data
-
Labs:
Laboratory Results
11/27/23
04:45
WBC 14.4 H
Hgb 8.9 L
Hct 27.3 L
Plt Count 211
Sodium 136
Potassium 4.2
Chloride 106
Carbon Dioxide 27
BUN 41 H
Creatinine 0.9
Glucose 103 H
Calcium 8.8
Vital Signs:
Vital Signs
Temp Pulse Resp BP Pulse Ox
98.2 F 51 16 140/71 100
11/27/23 07:47 11/27/23 08:00 11/27/23 07:47 11/27/23 07:48 11/27/23 07:47
I&O
11/26/23 11/27/23 11/28/23
06:59 06:59 06:59
Intake Total 620 / 620 350 / 350
Output Total 2525 / 2525 3600 / 3600
Balance -1905 / -1905 -3250 / -3250
Review of Systems
-
All other systems: Reviewed and negative
--- NOTE | 2023-11-27 08:28 | W.PN.CD ---
Today's Communication / Plan
-
-TAVR workup in progress; will be seen by TAVR coordinator today with plan for outpatient TAVR.
-Continue to trend hemoglobin; may need GI workup.
-Continue Lasix 20 mg IV BID.
Impression / Plan
-
88 y/o male (follows with Dr. Beasley) with CAD s/p CABG 2000, PCI to RCA 2012, severe aortic stenosis, bradycardia, hypertension, dyslipidemia, thoracic aortic ectasia, hypothyroidism, and BPH who is here for evaluation of cough, SOB, and fatigue.
There is weight gain (10 lbs).�He now has severe ; being worked up for TAVR. Also found to be anemic.
Severe :
-TAVR workup in progress; will be seen by TAVR coordinator today with plan for outpatient TAVR.
CAD status-post CABG and PCI:
-Patent grafts on catheterization yesterday.
-Continue aspirin, statin; no beta-pancho due to low intrinsic heart rates.
Anemia:
-Hemoglobin 7.3 on admission.
-improved s/p 2 units PRBC's
-management per primary team
-Continue to trend hemoglobin; may need GI workup.
Acute HFpEF:
-edema, weight gain, SOB, elevated BNP, abnormal CXR
-Patient is not on Lasix at home.
-Continue Lasix 20 mg IV BID.
Moderate MR/TR:
-Continue Lasix.
HTN:
-Fairly controlled; continue ramipril and amlodipine
Physical Exam
Vital Signs/Labs
Vital Signs
Temp Pulse Resp BP Pulse Ox
98.2 F 51 16 140/71 100
11/27/23 07:47 11/27/23 08:00 11/27/23 07:47 11/27/23 07:48 11/27/23 07:47
11/26/23 11/27/23 11/28/23
06:59 06:59 06:59
Actual Weight 80 kg 79.1 kg
11/27/23 04:45
11/27/23 04:45
Magnesium 2.2 mg/dl (1.6-2.3) 11/27/23 04:45
Triglycerides 41 mg/dl (10-149) 11/26/23 08:22
LDL Cholesterol, Calc 28 mg/dl 11/26/23 08:22
VLDL Cholesterol, Calc 8 mg/dl (0-30) 11/26/23 08:22
HDL Cholesterol 60 mg/dl 11/26/23 08:22
11/25/23
19:08
Ues-Z-Rqaozhlblbx Pept 1680
LAB Results
11/25/23 11/26/23 11/26/23
19:08 01:50 08:22
Troponin I 0.019 0.022 0.026
Physical Exam
Constitutional: No acute distress and Comfortable
EENT: Anicteric
Cardiovascular: Rhythm & rate is regular, Pedal edema is absent, Systolic murmur present (4/6) and S1S2 is normal
Respiratory: Respiratory effort normal and Rhonchi Present (Mild bibasilar)
GI: Soft
Neuro/Psych: AO x 3
Other: Skin (Warm, dry, intact)
Data Reviewed
-
Date of Service: November 27, 2023
EKG: Tracing Personally Visualized and interpreted (Telemetry: Sinus rhythm, intermittent PVCs/bigeminy)
Echo: Tracing Personally Visualized and interpreted (EF 55-60%; severe ; moderate MR/TR.)
Medical Tests (PFT, Pathology etc): Discussed with Patient
Labs: Labs Reviewed by me
[2023-11-27] MEDS: LOW STRENGTH ASPIRIN 81 MG PO (08:47)
[2023-11-27] MEDS: NORVASC 10 MG PO (08:47)
[2023-11-27] MEDS: SYNTHROID 25 MCG PO (08:47)
[2023-11-27] MEDS: ALTACE 10 MG PO (08:47)
[2023-11-27] MEDS: PROSCAR 5 MG PO (08:47)
[2023-11-27] MEDS: LASIX 20 MG IV ×2 (08:48→15:32)
[2023-11-27] MEDS: FLUSH (NSS) 1 FLUSH IV ×2 (08:48→15:32)
--- NOTE | 2023-11-27 09:08 | PTCARENOTE ---
Received patient this morning lying in bed, audible expiratory wheeze can be heard while the patient is sleeping. Patient was on 3L NC, tells me he does not have O2 at home. RA pulse ox 95%, will continue to monitor pulse ox. Patient seen by TAVR
coordinator, patient states plan is for him to go home and return in a few weeks for planned procedure.
--- NOTE | 2023-11-27 10:16 | CM ---
Reviewed chart. Met with Mr. Valle to review discharge plans. Reviewed [facility] with him. He is agreeable to [facility]. Telephone call to [facility] to make the referral. Sent the referral. Prior to admission he resides alone in a
three story home without any steps to enter. He has a firt floor set-up. Prior to admission he was independent with ambulation and adls. He does not have any DME in the home. He has a prescription plan and does mail order and [facility].
Medical work-up in progress. The [facility].
[2023-11-27] MEDS: LOVENOX 40 MG SC (18:42)
[2023-11-27] MEDS: CRESTOR 20 MG PO (18:42)
[2023-11-28 04:09] VITALS: BP 142/71
[2023-11-28 04:37] VITALS: BMI 27.7
[2023-11-28 05:06] LABS: Hematocrit 26.1 % (39.0-52.0); Hemoglobin 8.3 g/dL (13.0-18.0); Mean Corp Hgb Conc. 31.8 g/dL (33.0-37.0); Mean Corpuscular Volume 75.4 fL (80.0-94.0); Mean Platelet Volume 9.7 fL (7.4-10.4); Platelet Count 212 10^3/uL (130-400); Red Blood Cell Count 3.46 10^6/uL (4.70-6.10); Red Cell Dist. Width 17.1 % (11.5-14.5); White Blood Cell Count 9.7 10^3/uL (4.8-10.8)
[2023-11-28 05:29] LABS: Blood Urea Nitrogen 41 mg/dl (9-20); Calcium 8.4 mg/dl (8.4-10.2); Carbon Dioxide 30 mmol/L (22-30); Chloride 104 mmol/L (98-107); Estimated Creatinine Clearance 45 ml/min; Glucose 90 mg/dl (70-99); Magnesium 2.1 mg/dl (1.6-2.3); Potassium 3.9 mmol/L (3.5-5.1); Sodium 136 mmol/L (135-145); eGFR > 60.00
[2023-11-28 06:57] VITALS: BP 135/81
--- NOTE | 2023-11-28 08:11 | W.PN.HOSP.TC ---
Today's Communication/Plan
-
Continue IV Lasix. GI eval
Assessment / Plan
Assessment / Plan
Physical exam:
General: Well Developed, Well Nourished and No Apparent Distress
HEENT: Normocephalic, Atraumatic and Moist Mucous Membranes
Respiratory: Bilateral crackles; Negative Wheezes or Rhonchi
Cardiac: Regular Rhythm and S1/S2. Systolic ejection murmur in left sternal border.
GI: Soft, Nontender and Nondistended
Musculoskeletal: No Clubbing, No Cyanosis and less edema
Neuro: Awake, Alert and Oriented
Psych: Calm
A/P:
#symptomatic anemia likely iron def anemia
-obtain B12, ferritin, folate, TIBC--> normal B12 and folate; iron deficiency parameters positive.
-Hematest stools
-denied any active bleeding
-transfusing with 2 units of PRBC-->Hemoglobin up to 9.4--> 8.9-->8.3 today
-Discussed with daughter on . If hemoglobin remained stable plan to do GI evaluation as outpatient, but if hemoglobin drops or any signs of GI bleed will have GI to see him while inpatient. Although given cardiology recommendations we will
request GI eval.
-Discussed with daughter who tells me he had upper endoscopy and colonoscopy just last year without significant findings. No evidence of hemolysis either. Possibility as an etiology of aortic valve causing anemia or slow occult bleed from small
bowel testing for which he will require capsule endoscopy and other further workup as outpatient with GI. Will refer to GI as outpatient as discussed with daughter at bedside today.
#acute hypoxic respiratory failure likely new onset CHF/chest heaviness
-chest x ray with Findings most consistent with congestive heart failure.
-BNP 1680,trop 0.019
-received a dose of Lasix 40 in ER
-trend trop
-Lasix 20mg iv bid
-obtain eCHO
-cardiology consulted
# Acute diastolic congestive heart failure
-IV diuretics, Lasix 20 mg IV twice a day
-Monitor strict I/O
-Monitor daily weight
-Monitor renal function and electrolytes
-Reviewed latest echocardiogram on our system
-Continue guideline-directed medical therapy for heart failure (GDMT)
-Follow up clinical response
#Severe aortic stenosis
-Will need to contemplate TAVR in the near future but will defer to cardiology--> plan for TAVR in the immediate future per cardiology
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
#Hypertension
-Norvasc continued
-rampiril continued
#AAA
#CAD with CABG
-aspirin continued
#BPH
-Flomax continued
#hypothyroidism
-levothyroxine continued
#HLD
-statin
#DVT prophylaxis: Lovenox
#CODE status
-full code
Total time spent on today's encounter was 52 minutes which included time spent in counseling the patient/family regarding diagnosis and treatment plan as listed above, goals of care, and symptom management. Case was discussed with nursing staff,
specialists, and care coordinators/case management. All labs and imaging personally reviewed by me. Remainder the time spent in detailed review of previous records, lab data, imaging, and other medical provider documentation.
Anticipated Discharge: 24 - 48 hours
Subjective/Interval History
-
Date of Service: November 28, 2023
Patient denies any chest pain. Less shortness of breath. Feels better overall. No melena or hematemesis.
Objective Data
-
Labs:
Laboratory Results
11/28/23 11/28/23
04:28 04:29
WBC 9.7
Hgb 8.3 L
Hct 26.1 L
Plt Count 212
Sodium 136
Potassium 3.9
Chloride 104
Carbon Dioxide 30
BUN 41 H
Creatinine 1.0
Glucose 90
Calcium 8.4
Vital Signs:
Vital Signs
Temp Pulse Resp BP Pulse Ox
98.4 F 44 18 135/81 99
11/28/23 06:56 11/28/23 07:00 11/28/23 06:56 11/28/23 06:57 11/28/23 06:57
I&O
11/27/23 11/28/23 11/29/23
06:59 06:59 06:59
Intake Total 350 / 350 240 / 240
Output Total 3600 / 3600 1750 / 1750
Balance -3250 / -3250 -1510 / -1510
Review of Systems
-
All other systems: Reviewed and negative
[2023-11-28] MEDS: PROSCAR 5 MG PO (08:29)
[2023-11-28] MEDS: NORVASC 10 MG PO (08:29)
[2023-11-28] MEDS: LOW STRENGTH ASPIRIN 81 MG PO (08:29)
[2023-11-28] MEDS: ALTACE 10 MG PO (08:29)
[2023-11-28] MEDS: LASIX 20 MG IV (08:30)
[2023-11-28] MEDS: FLUSH (NSS) 1 FLUSH IV (08:30)
[2023-11-28] MEDS: SENOKOT-S 1 TABLET PO (08:32)
--- NOTE | 2023-11-28 09:13 | PTCARENOTE ---
Received patient this morning ambulating in his room. Complaining of constipation and given senokot s as ordered. Patient informed of need to hematest stools if he does move his bowel. Given IV lasix as scheduled, patient is aware of need for
accurate I&O.
[2023-11-28] MEDS: SYNTHROID 25 MCG PO (11:04)
[2023-11-28 12:12] VITALS: BP 114/52
--- NOTE | 2023-11-28 12:22 | PTCARENOTE ---
Patient had a moderate sized formed brown bowel movement, heme negative.
--- NOTE | 2023-11-28 12:49 | W.PN.CD ---
Today's Communication / Plan
-
Continue TAVR workup.
Change furosemide to 40 mg IV daily.
Start dapagliflozin 10 mg daily.
Check peripheral smear, reticulocyte count.
We will try to obtain the patient's prior GI workup.
Start supplemental iron.
Impression / Plan
-
Impression/Plan: 88 y/o male (follows with Dr. Beasley) with CAD s/p CABG 2000 (PATEL to LAD, SVG to OM, SVG to RPDA), PCI to RCA 2012, bradycardia, hypertension, dyslipidemia, thoracic aortic ectasia, hypothyroidism, and BPH admitted with
decompensated HFpEF due to now severe , also complicated by acute on chronic anemia (previously negative EGD/colon).
#Severe :
-TAVR workup in progress; will be seen by TAVR coordinator today with plan for outpatient TAVR.
#CAD status-post CABG and PCI:
-Patient PATEL to LAD, SVG to OM, SVG to RPDA.
-Patient stents in the RPL.
-Continue aspirin, statin; no beta-pancho due to low intrinsic heart rates.
#Anemia:
-Hemoglobin 7.3 on admission, improved s/p 2 units PRBC's.
-Hbg continues to trend down.
-Heme negative stool.
-Folate/B12 levels are normal. Total Bilirubin 1.5. Total Fe = 33, %Sat = 7, Ferritin = 6.5.
-Patient/family reports negative prior GI workup. We will try to obtain these records.
-Check reticulocyte count, peripheral smear.
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
#Acute HFpEF:
-Change furosemide to 40 mg IV daily.
-Monitor renal function.
-Continue ramipril. The patient would benefit from SGLT2i.
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
-Chronic.
-Monitor with diuresis.
#HTN:
-Chronic, stable.
-Continue amlodipine, ramipril.
Subjective/Interval History:
Weight is down 1.4 kg from yesterday.
Hbg continues to drift down (7.3 --> transfusion --> 9.4 --> 8.9 --> 8.3).
Heme negative bowel movement this morning.
DATA:
TTE, 11/26/2023:
CONCLUSIONS
�Normal left ventricular size, wall thickness and systolic function. No regional
�wall motion abnormalities are seen. LV ejection fraction is 55-60% by Schaefer's
�method of discs. Stage II diastolic dysfunction suggestive of abnormal
�relaxation and increased filling pressures.
�Normal right ventricular size and systolic function.
�Moderate left atrial dilation.
�Mild right atrial dilation.
�Mild restriction of the posterior mitral leaflet with malcoaptation leading to
�eccentric, moderate, posteriorly directed mitral regurgitation.
�Calcified and thickened aortic valve with restricted leaflet motion and severe
�aortic stenosis and mild/trace insufficiency.
�Moderate tricuspid regurgitation.
�Mild/moderate pulmonic regurgitation.
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
�The IVC is mildly dilated with blunted inspiratory collapse.� Right atrial
�pressure estimated at 12 mmHg.
�Moderate pulmonary hypertension.� PASP estimated at 57 mmHg.
�
�Compared to prior study of 12/05/2021, aortic stenosis has progressed from
�moderate to severe, there is now moderate, eccentric mitral regurgitation, the
�aorta has dilated from 3.6 cm to 3.9 cm, there is now stage 2 diastolic
�dysfunction and there is now moderate pulmonary hypertension.
Cardiac Catheterization, 11/26/2023:
CONCLUSIONS:
1.� Right dominant circulation with a chronic total occlusion of the proximal LAD, 30-40% lesion in the distal LAD, a chronically totally occluded proximal circumflex and a chronically totally occluded RPDA with patent stents in the proximal and
distal RCA, status post prior bypass (patent PATEL to LAD, patent SVG to OM1, patent SVG to RPDA) with right to left collaterals to the distal circumflex.
2.� Severely elevated filling pressures (PCWP = 34 mmHg at 80.1 kg).
3.� Severe aortic valve stenosis by echocardiogram.
4.� Preserved cardiac function (cardiac index = 2.4 L/min/m�).
Physical Exam
Vital Signs/Labs
Vital Signs
Temp Pulse Resp BP Pulse Ox
36.5 C 63 16 114/52 95
11/28/23 12:16 11/28/23 12:12 11/28/23 12:16 11/28/23 12:12 11/28/23 12:16
11/27/23 11/28/23 11/29/23
11:59 11:59 11:59
Actual Weight 79.1 kg 77.7 kg
11/28/23 04:29
11/28/23 04:28
Magnesium 2.1 mg/dl (1.6-2.3) 11/28/23 04:28
Triglycerides 41 mg/dl (10-149) 11/26/23 08:22
LDL Cholesterol, Calc 28 mg/dl 11/26/23 08:22
VLDL Cholesterol, Calc 8 mg/dl (0-30) 11/26/23 08:22
HDL Cholesterol 60 mg/dl 11/26/23 08:22
11/25/23
19:08
Lva-E-Efxubmrlhth Pept 1680
LAB Results
11/25/23 11/26/23 11/26/23
19:08 01:50 08:22
Troponin I 0.019 0.022 0.026
Physical Exam
Constitutional: No acute distress and Comfortable
EENT: Anicteric and Moist mucous membranes
Cardiovascular: Rhythm & rate is regular, Pedal edema is absent, JVD pressure is normal, Systolic murmur present and S1S2 is normal
Respiratory: Respiratory effort normal, Lungs clear to auscul., Wheeze Absent, Crackles Absent and Rhonchi Absent
GI: Soft, Distention absent, Flat, Non tender, Normal bowel sounds and Distention present
Neuro/Psych: AO x 3
Other: Cath Site (Left radial access site is C/D/I.)
Data Reviewed
-
Date of Service: November 28, 2023
Medical Decision Making: Reviewed Test Results, Independent Historian Assessment and Test Interpretation
EKG: Tracing Personally Visualized and interpreted and Report Reviewed by me
Echo: Tracing Personally Visualized and interpreted and Report Reviewed by me
X-Ray/CT/US/MRI/NUC/PET: Image Personally Visualized and interpreted and Report Reviewed by me
Medical Tests (PFT, Pathology etc): Image Personally Visualized and interpreted and Report Reviewed by me
Labs: Labs Reviewed by me and Labs Ordered by me
[2023-11-28 15:44] VITALS: BP 125/70
[2023-11-28] MEDS: FEOSOL 325 MG PO ×2 (15:44→22:34)
[2023-11-28] MEDS: LASIX 40 MG IV (15:45)
--- NOTE | 2023-11-28 16:18 | W.PN.UPDATE ---
Addendum entered and electronically signed by GUIDO Kenney 11/29/23 08:57:
GI procedures now scanned under other health information -- correction to below daughter louie called to set up appt
Addendum entered and electronically signed by GUIDO Kenney 11/28/23 17:08:
per Dr. Yanes recent GI procedure were 07/2024 to be scanned into system. Studies completed by digestive health Dr. Engel in [place]. Noted 2 colon polyps, no esophageal metaplasia no H pylori.
Original Note:
Update Note
Progress Note Update
reviewed with Dr. Joiner and Dr. Bradley. Pt schedule GI follow up with Dr. Sumner 12/25 at 11:30 to review for capsule. Dr. Espinosa called to set up apt.
[2023-11-28] MEDS: CRESTOR 20 MG PO (17:45)
[2023-11-28] MEDS: LOVENOX 40 MG SC (17:45)
[2023-11-28 18:41] VITALS: BP 112/56
[2023-11-28 22:33] VITALS: BP 121/67
[2023-11-29 03:21] VITALS: BP 131/77
[2023-11-29 03:29] VITALS: BMI 27.1
[2023-11-29 03:54] LABS: % Basophils 0.5 % (0-2); % Eosinophils 2.4 % (0-6); % Immature Granulocytes 0.4 % (0-0.5); % Monocytes 12.5 % (1.7-9.3); % Neutrophils 66.2 % (42.2-75.2); Absolute Eosinophils 0.2 10^3/uL (0-0.7); Absolute Lymphocytes 1.4 10^3/uL (1.2-3.4); Hematocrit 26.7 % (39.0-52.0); Hemoglobin 8.6 g/dL (13.0-18.0); Mean Corp Hgb Conc. 32.2 g/dL (33.0-37.0); Mean Corpuscular Hgb 24.3 pg (27.0-31.0); Mean Corpuscular Volume 75.4 fL (80.0-94.0); Mean Platelet Volume 9.2 fL (7.4-10.4); Nucleated Red Blood Cells % 0 % (-); Platelet Count 204 10^3/uL (130-400); Red Blood Cell Count 3.54 10^6/uL (4.70-6.10); Red Cell Dist. Width 17.1 % (11.5-14.5); White Blood Cell Count 7.6 10^3/uL (4.8-10.8)
[2023-11-29 04:17] LABS: Blood Urea Nitrogen 29 mg/dl (9-20); Calcium 8.3 mg/dl (8.4-10.2); Carbon Dioxide 31 mmol/L (22-30); Chloride 102 mmol/L (98-107); Estimated Creatinine Clearance 45 ml/min; Glucose 86 mg/dl (70-99); Potassium 3.8 mmol/L (3.5-5.1); Sodium 134 mmol/L (135-145); eGFR > 60.00
[2023-11-29 07:04] VITALS: BP 122/64
--- NOTE | 2023-11-29 08:01 | W.PN.HOSP.TC ---
Today's Communication/Plan
-
Continue IV Lasix.
Assessment / Plan
Assessment / Plan
Physical exam:
General: Well Developed, Well Nourished and No Apparent Distress
HEENT: Normocephalic, Atraumatic and Moist Mucous Membranes
Respiratory: Bilateral crackles; Negative Wheezes or Rhonchi
Cardiac: Regular Rhythm and S1/S2. Systolic ejection murmur in left sternal border.
GI: Soft, Nontender and Nondistended
Musculoskeletal: No Clubbing, No Cyanosis and less edema
Neuro: Awake, Alert and Oriented
Psych: Calm
A/P:
#symptomatic anemia likely iron def anemia
-obtain B12, ferritin, folate, TIBC--> normal B12 and folate; iron deficiency parameters positive.
-Hematest stools
-denied any active bleeding
-transfusing with 2 units of PRBC-->Hemoglobin up to 9.4--> 8.9-->8.6 today
-Discussed with daughter on . If hemoglobin remained stable plan to do GI evaluation as outpatient, but if hemoglobin drops or any signs of GI bleed will have GI to see him while inpatient. Although given cardiology recommendations we will
request GI eval.
-Discussed with daughter who tells me he had upper endoscopy and colonoscopy just last year without significant findings. No evidence of hemolysis either. Possibility as an etiology of aortic valve causing anemia or slow occult bleed from small
bowel testing for which he will require capsule endoscopy and other further workup as outpatient with GI. Will refer to GI as outpatient as discussed with daughter at bedside today. Discussed with GI today on and plan for outpatient workup.
#acute hypoxic respiratory failure likely new onset CHF/chest heaviness
-chest x ray with Findings most consistent with congestive heart failure.
-BNP 1680,trop 0.019
-received a dose of Lasix 40 in ER
-trend trop
-Lasix 20mg iv bid--> cardiology recommends continue IV Lasix for now and probably switch to oral tomorrow
-obtained eCHO
-cardiology consulted
# Acute diastolic congestive heart failure
-IV diuretics, Lasix 20 mg IV twice a day-->cardiology recommends continue IV Lasix for now and probably switch to oral tomorrow
-Monitor strict I/O
-Monitor daily weight
-Monitor renal function and electrolytes
-Reviewed latest echocardiogram on our system
-Continue guideline-directed medical therapy for heart failure (GDMT)
-Follow up clinical response
#Severe aortic stenosis
-Will need to contemplate TAVR in the near future but will defer to cardiology--> plan for TAVR in the immediate future per cardiology
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
#Hypertension
-Norvasc continued
-rampiril continued
#AAA
#CAD with CABG
-aspirin continued
#BPH
-Flomax continued
#hypothyroidism
-levothyroxine continued
#HLD
-statin
#DVT prophylaxis: Lovenox
#CODE status
-full code
Anticipated Discharge: Within 24 hours
Subjective/Interval History
-
Date of Service: November 29, 2023
Denies any chest pain. No shortness of breath. No melena or hematemesis although FOBT positive
Objective Data
-
Labs:
Laboratory Results
11/29/23
03:26
WBC 7.6
Hgb 8.6 L
Hct 26.7 L
Plt Count 204
Sodium 134 L
Potassium 3.8
Chloride 102
Carbon Dioxide 31 H
BUN 29 H
Creatinine 1.0
Glucose 86
Calcium 8.3 L
Vital Signs:
Vital Signs
Temp Pulse Resp BP Pulse Ox
98.4 F 47 20 131/77 94
11/29/23 07:01 11/29/23 05:00 11/29/23 07:01 11/29/23 03:21 11/29/23 07:01
I&O
11/28/23 11/29/23 11/30/23
06:59 06:59 06:59
Intake Total 240 / 240 360 / 360
Output Total 1750 / 1750 2400 / 2400
Balance -1510 / -1510 -0 / -0
Review of Systems
-
All other systems: Reviewed and negative
[2023-11-29] MEDS: JARDIANCE 10 MG PO (08:44)
[2023-11-29] MEDS: ALTACE 10 MG PO (08:44)
[2023-11-29] MEDS: LOW STRENGTH ASPIRIN 81 MG PO (08:44)
[2023-11-29] MEDS: FEOSOL 325 MG PO ×3 (08:44→21:29)
[2023-11-29] MEDS: PROSCAR 5 MG PO (08:45)
[2023-11-29] MEDS: NORVASC 10 MG PO (08:45)
[2023-11-29] MEDS: SYNTHROID 25 MCG PO (08:45)
[2023-11-29] MEDS: LASIX 40 MG IV (08:45)
--- NOTE | 2023-11-29 09:13 | CM ---
Reviewed chart. Met with Mr. Spear to review discharge plans. He states he is feeling better and maybe able to go home. Telephone call to [employer] to check on co-pay for Jardiance. His co-pay for Jardiance 10 mg daily is $47.00 a month.
Reviewed co-pay with him. He is agreeable t the co-pay. Placed the one month free coupon in his red discharge folder. We also reviewed [facility] with [facility]. He is still agreeable to [facility]. Prior to admission he resides alone
in a three story home without any steps to enter. He elias a first floor set-up. Prior to admission he was independent with ambulation and adls. He does not have any DME in the home. He has a prescription plan and uses [facility] and mail order.
Medical work-up in progress. The discharge plan is to return home with [facility] when medically stable.
--- NOTE | 2023-11-29 09:42 | W.PN.CD ---
Today's Communication / Plan
-
continue IV lasix
continue jardiance
assess for PO lasix in AM; trend labs
Impression / Plan
-
Impression/Plan: 88 y/o male (follows with Dr. Beasley) with CAD s/p CABG 2000 (PATEL to LAD, SVG to OM, SVG to RPDA), PCI to RCA 2012, bradycardia, hypertension, dyslipidemia, thoracic aortic ectasia, hypothyroidism, and BPH admitted with
decompensated HFpEF due to now severe , also complicated by acute on chronic anemia (previously negative EGD/colon).
#Severe :
-TAVR workup in progress; plan for eventual outpatient TAVR
#CAD status-post CABG and PCI:
-Patient PATEL to LAD, SVG to OM, SVG to RPDA.
-Patient stents in the RPL.
-Continue aspirin, statin; no beta-pancho due to low intrinsic heart rates.
#Acute HFpEF:
-continue furosemide 40 mg IV daily.
-Monitor renal function and tele closely
-Continue jardiance
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
-Chronic.
-diuresis.
#HTN:
-Chronic, stable.
-Continue amlodipine, ramipril.
#Anemia:
-Hemoglobin 7.3 on admission, improved s/p 2 units PRBC's.
-Hbg continues to trend down.
-Heme negative stool.
-Folate/B12 levels are normal. Total Bilirubin 1.5. Total Fe = 33, %Sat = 7, Ferritin = 6.5.
-Patient/family reports negative prior GI workup. We will try to obtain these records.
-Check reticulocyte count, peripheral smear.
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
Subjective/Interval History:
Good response to IV lasix.
DATA:
TTE, 11/26/2023:
CONCLUSIONS
�Normal left ventricular size, wall thickness and systolic function. No regional
�wall motion abnormalities are seen. LV ejection fraction is 55-60% by Schaefer's
�method of discs. Stage II diastolic dysfunction suggestive of abnormal
�relaxation and increased filling pressures.
�Normal right ventricular size and systolic function.
�Moderate left atrial dilation.
�Mild right atrial dilation.
�Mild restriction of the posterior mitral leaflet with malcoaptation leading to
�eccentric, moderate, posteriorly directed mitral regurgitation.
�Calcified and thickened aortic valve with restricted leaflet motion and severe
�aortic stenosis and mild/trace insufficiency.
�Moderate tricuspid regurgitation.
�Mild/moderate pulmonic regurgitation.
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
�The IVC is mildly dilated with blunted inspiratory collapse.� Right atrial
�pressure estimated at 12 mmHg.
�Moderate pulmonary hypertension.� PASP estimated at 57 mmHg.
�
�Compared to prior study of 12/05/2021, aortic stenosis has progressed from
�moderate to severe, there is now moderate, eccentric mitral regurgitation, the
�aorta has dilated from 3.6 cm to 3.9 cm, there is now stage 2 diastolic
�dysfunction and there is now moderate pulmonary hypertension.
Cardiac Catheterization, 11/26/2023:
CONCLUSIONS:
1.� Right dominant circulation with a chronic total occlusion of the proximal LAD, 30-40% lesion in the distal LAD, a chronically totally occluded proximal circumflex and a chronically totally occluded RPDA with patent stents in the proximal and
distal RCA, status post prior bypass (patent PATEL to LAD, patent SVG to OM1, patent SVG to RPDA) with right to left collaterals to the distal circumflex.
2.� Severely elevated filling pressures (PCWP = 34 mmHg at 80.1 kg).
3.� Severe aortic valve stenosis by echocardiogram.
4.� Preserved cardiac function (cardiac index = 2.4 L/min/m�).
Physical Exam
Vital Signs/Labs
Vital Signs
Temp Pulse Resp BP Pulse Ox
98.4 F 47 20 131/77 94
11/29/23 07:01 11/29/23 05:00 11/29/23 07:01 11/29/23 03:21 11/29/23 07:01
11/28/23 11/29/23 11/30/23
06:59 06:59 06:59
Actual Weight 77.7 kg 76.2 kg
11/29/23 03:26
11/29/23 03:26
Magnesium 2.1 mg/dl (1.6-2.3) 11/28/23 04:28
Triglycerides 41 mg/dl (10-149) 11/26/23 08:22
LDL Cholesterol, Calc 28 mg/dl 11/26/23 08:22
VLDL Cholesterol, Calc 8 mg/dl (0-30) 11/26/23 08:22
HDL Cholesterol 60 mg/dl 11/26/23 08:22
11/25/23
19:08
Thq-B-Kouvhfeahai Pept 1680
Physical Exam
Constitutional: No acute distress and Comfortable
EENT: Moist mucous membranes
Cardiovascular: Rhythm & rate is regular, Pedal edema present (trace), JVD present and Systolic murmur present
Respiratory: Respiratory effort normal and Lungs clear to auscul.
GI: Soft, Distention absent and Flat
Neuro/Psych: AO x 3
Data Reviewed
-
Date of Service: November 29, 2023
EKG: Other (Tele: SR/SB 50s, PAC's)
Labs: Labs Reviewed by me
[2023-11-29 11:33] VITALS: BP 114/70
[2023-11-29 15:49] VITALS: BP 104/62
[2023-11-29] MEDS: CRESTOR 20 MG PO (17:03)
[2023-11-29] MEDS: LOVENOX 40 MG SC (17:03)
--- NOTE | 2023-11-29 18:15 | PTCARENOTE ---
- Patient transferred and oriented to unit without issue. AAOX3; Skin=warm/pink/dry. Teley #[id number]- currently NSR. Patient denies any needs at this time.
--- NOTE | 2023-11-29 18:31 | PTCARENOTE ---
Pt transferred to 417 bed 1, report given to RNFrancheska, prior to transfer.
[2023-11-29 22:30] VITALS: BP 121/58
[2023-11-30 05:03] VITALS: BMI 26.7
[2023-11-30 07:18] VITALS: BP 138/66
[2023-11-30] MEDS: ALTACE 10 MG PO (07:53)
[2023-11-30] MEDS: FEOSOL 325 MG PO (07:53)
[2023-11-30] MEDS: JARDIANCE 10 MG PO (07:53)
[2023-11-30] MEDS: LASIX 40 MG IV (07:53)
[2023-11-30] MEDS: PROSCAR 5 MG PO (07:54)
[2023-11-30] MEDS: NORVASC 10 MG PO (07:54)
[2023-11-30] MEDS: SYNTHROID 25 MCG PO (07:54)
[2023-11-30] MEDS: LOW STRENGTH ASPIRIN 81 MG PO (07:54)
--- NOTE | 2023-11-30 07:58 | W.PN.CD ---
Today's Communication / Plan
-
Continue iron supplementation.
Change furosemide to 40 mg PO daily with weight based flex dosing. If weight increases by 1-3 lbs/24 hours or 3-5 lbs/week, patient should increase furosemide to 80 mg daily until weight returns to baseline.
Monitor labs this morning.
If he remains stable this morning, he can be discharged to outpatient follow up.
Impression / Plan
-
Impression/Plan: 88 y/o male (follows with Dr. Beasley) with CAD s/p CABG 2000 (PATEL to LAD, SVG to OM, SVG to RPDA), PCI to RCA 2012, bradycardia, hypertension, dyslipidemia, thoracic aortic ectasia, hypothyroidism, and BPH admitted with
decompensated HFpEF due to now severe , also complicated by acute on chronic anemia (previously negative EGD/colon).
#Severe :
-TAVR workup in progress; plan for eventual outpatient TAVR.
#CAD status-post CABG and PCI:
-Patient PATEL to LAD, SVG to OM, SVG to RPDA.
-Patient stents in the RPL.
-Continue aspirin, statin; no beta-pancho due to low intrinsic heart rates.
#HFpEF:
-Acute, improving. Secondary to and diastolic dysfunction.
-Change furosemide to 40 mg PO daily.
-Continue empagliflozin.
-No role for beta pancho (bradycardia).
-Daily weights (including at home). If weight increases by 1-3lbs/24 hours, 3-5 lbs/week, patient should increase furosemide to 80 mg PO daily until weight returns to baseline.
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
-Chronic, stable.
#HTN:
-Chronic, stable.
-Continue amlodipine, ramipril.
#Anemia:
-Hemoglobin 7.3 on admission, improved s/p 2 units PRBC's.
-Hbg stabilized yesterday. Labs pending today.
-Heme negative stool.
-Folate/B12 levels are normal. Total Bilirubin 1.5. Total Fe = 33, %Sat = 7, Ferritin = 6.5.
-Negative prior GI workup (scanned into chart - see Diagnostics --> Other Specialty --> General --> 'Other Health Care Facility Information' dated 11/25/2023 under).
-Reticulocyte count, peripheral smear pending.
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
-Continue FeSO4 325 mg TID.
Subjective/Interval History:
Transferred to 4th floor.
H/H stable yesterday.
Started on supplemental FeSO4.
No longer requiring supplemental oxygen.
DATA:
TTE, 11/26/2023:
CONCLUSIONS
�Normal left ventricular size, wall thickness and systolic function. No regional
�wall motion abnormalities are seen. LV ejection fraction is 55-60% by Schaefer's
�method of discs. Stage II diastolic dysfunction suggestive of abnormal
�relaxation and increased filling pressures.
�Normal right ventricular size and systolic function.
�Moderate left atrial dilation.
�Mild right atrial dilation.
�Mild restriction of the posterior mitral leaflet with malcoaptation leading to
�eccentric, moderate, posteriorly directed mitral regurgitation.
�Calcified and thickened aortic valve with restricted leaflet motion and severe
�aortic stenosis and mild/trace insufficiency.
�Moderate tricuspid regurgitation.
�Mild/moderate pulmonic regurgitation.
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
�The IVC is mildly dilated with blunted inspiratory collapse.� Right atrial
�pressure estimated at 12 mmHg.
�Moderate pulmonary hypertension.� PASP estimated at 57 mmHg.
�
�Compared to prior study of 12/05/2021, aortic stenosis has progressed from
�moderate to severe, there is now moderate, eccentric mitral regurgitation, the
�aorta has dilated from 3.6 cm to 3.9 cm, there is now stage 2 diastolic
�dysfunction and there is now moderate pulmonary hypertension.
Cardiac Catheterization, 11/26/2023:
CONCLUSIONS:
1.� Right dominant circulation with a chronic total occlusion of the proximal LAD, 30-40% lesion in the distal LAD, a chronically totally occluded proximal circumflex and a chronically totally occluded RPDA with patent stents in the proximal and
distal RCA, status post prior bypass (patent PATEL to LAD, patent SVG to OM1, patent SVG to RPDA) with right to left collaterals to the distal circumflex.
2.� Severely elevated filling pressures (PCWP = 34 mmHg at 80.1 kg).
3.� Severe aortic valve stenosis by echocardiogram.
4.� Preserved cardiac function (cardiac index = 2.4 L/min/m�).
Physical Exam
Vital Signs/Labs
Vital Signs
Temp Pulse Resp BP Pulse Ox
37.2 C 51 16 121/58 92
11/29/23 22:30 11/29/23 22:30 11/29/23 22:30 11/29/23 22:30 11/29/23 22:30
11/28/23 11/29/23 11/30/23
11:59 11:59 11:59
Actual Weight 77.7 kg 76.2 kg 74.979 kg
Magnesium 2.1 mg/dl (1.6-2.3) 11/28/23 04:28
Triglycerides 41 mg/dl (10-149) 11/26/23 08:22
LDL Cholesterol, Calc 28 mg/dl 11/26/23 08:22
VLDL Cholesterol, Calc 8 mg/dl (0-30) 11/26/23 08:22
HDL Cholesterol 60 mg/dl 11/26/23 08:22
11/25/23
19:08
Jzm-E-Ummjkeiadfm Pept 1680
Physical Exam
Constitutional: No acute distress and Comfortable
EENT: Anicteric and Moist mucous membranes
Cardiovascular: Rhythm & rate is regular, Pedal edema is absent, JVD pressure is normal, Systolic murmur present and S1S2 is normal
Respiratory: Respiratory effort normal, Lungs clear to auscul., Wheeze Absent, Crackles Absent and Rhonchi Absent
GI: Soft, Distention absent, Flat, Non tender and Normal bowel sounds
Neuro/Psych: AO x 3
Other: Cath Site (Left radial access site is C/D/I.)
Data Reviewed
-
Date of Service: November 30, 2023
Medical Decision Making: Reviewed Test Results, Independent Historian Assessment, Test Interpretation and Review of Case with other Provider
EKG: Tracing Personally Visualized and interpreted and Report Reviewed by me
Echo: Tracing Personally Visualized and interpreted and Report Reviewed by me
X-Ray/CT/US/MRI/NUC/PET: Image Personally Visualized and interpreted and Report Reviewed by me
Medical Tests (PFT, Pathology etc): Image Personally Visualized and interpreted and Report Reviewed by me
Labs: Labs Reviewed by me
[2023-11-30 08:09] LABS: % Basophils 0.6 % (0-2); % Eosinophils 2.1 % (0-6); % Immature Granulocytes 0.4 % (0-0.5); % Lymphocytes 16.1 % (20.5-51.1); % Monocytes 13.3 % (1.7-9.3); % Neutrophils 67.5 % (42.2-75.2); Absolute Eosinophils 0.1 10^3/uL (0-0.7); Absolute Lymphocytes 1.1 10^3/uL (1.2-3.4); Absolute Monocytes 0.9 10^3/uL (0.1-0.6); Absolute Neutrophils 4.6 10^3/uL (1.4-6.5); Hematocrit 27.7 % (39.0-52.0); Hemoglobin 8.9 g/dL (13.0-18.0); Mean Corp Hgb Conc. 32.1 g/dL (33.0-37.0); Mean Corpuscular Hgb 24.8 pg (27.0-31.0); Mean Corpuscular Volume 77.2 fL (80.0-94.0); Mean Platelet Volume 9.2 fL (7.4-10.4); Nucleated Red Blood Cells % 0 % (-); Platelet Count 198 10^3/uL (130-400); Red Blood Cell Count 3.59 10^6/uL (4.70-6.10); Red Cell Dist. Width 17.4 % (11.5-14.5); Reticulocyte Count 2.5 % (0.4-2.8); White Blood Cell Count 6.8 10^3/uL (4.8-10.8)
[2023-11-30 08:50] LABS: Blood Urea Nitrogen 27 mg/dl (9-20); Calcium 8.6 mg/dl (8.4-10.2); Carbon Dioxide 31 mmol/L (22-30); Chloride 100 mmol/L (98-107); Estimated Creatinine Clearance 45 ml/min; Glucose 88 mg/dl (70-99); Potassium 3.8 mmol/L (3.5-5.1); Sodium 136 mmol/L (135-145); eGFR > 60.00
--- NOTE | 2023-11-30 09:19 | W.HF.CON ---
Heart Failure
- LV Function
Left ventricular function study result: LV Ejection fraction >40%
Ejection Fraction Percentage: 55-60
- ARNI
Patient already on ARNI: No
Heart Failure ARNI Not Indicated: LV Ejection Fraction >/= 40%
- ACEI/ARB
Patient already on ACEI/ARB: Yes
- Beta Gilebrto
Patient already on Evidence Based Beta Gilberto: No
Heart Failure Evidence Based Beta Gilberto Not Indicated: LV Ejection Fraction > 40%
- Mineralocorticord Receptor Antagonist
Patient already on MRA: No
Heart Failure MRA Not Indicated: LV Ejection Fraction > 40%
- SGLT-2 Inhibitor
Patient already on SGLT-2 Inhibitor: Yes
- NYHA CHF Classification
NYHA CHF Classification Level: Class III - Symptoms w/ min exertion, interferes w/ nml daily activity (severe )
- ACC/AHA Stage
ACC/AHA Stage: Stage C: Symptomatic Heart Failure
[2023-11-30 09:32] LABS: Absolute Neutrophils -Man Diff 4.9 10^3/uL (1.4-6.5); Band Neutrophils 0 % (0-3); Lymphocytes 23 % (20-51); Monocytes 3 % (2-9); Segmented Neutrophils 73 % (42-75)
[2023-11-30 09:33] LABS: Normal RBC Morphology No; Platelets Checked YES
[2023-11-30 09:45] LABS: Anisocytosis Slight; Macrocytosis Slight
[2023-11-30 09:46] LABS: Stomatocytes FEW; Target Cells FEW
[2023-11-30 09:47] LABS: Total Cells Counted 100
[2023-11-30 11:11] VITALS: PULSE 60; O2SAT 95
--- NOTE | 2023-11-30 11:25 | W.PN.HOSP.TC ---
Today's Communication/Plan
-
Discharge planning today.
Assessment / Plan
Assessment / Plan
Physical exam:
General: Well Developed, Well Nourished and No Apparent Distress
HEENT: Normocephalic, Atraumatic and Moist Mucous Membranes
Respiratory: No crackles; Negative Wheezes or Rhonchi
Cardiac: Regular Rhythm and S1/S2. Systolic ejection murmur in left sternal border.
GI: Soft, Nontender and Nondistended
Musculoskeletal: No Clubbing, No Cyanosis and less edema
Neuro: Awake, Alert and Oriented
Psych: Calm
A/P:
#symptomatic anemia likely iron def anemia
-obtain B12, ferritin, folate, TIBC--> normal B12 and folate; iron deficiency parameters positive. Continue oral iron as outpatient.
-Hematest stools positive but no active bleeding. GI follow-up as outpatient as below.
-transfusing with 2 units of PRBC-->Hemoglobin up to 9.4--> 8.9-->8.9 today
-Discussed with daughter on . If hemoglobin remained stable plan to do GI evaluation as outpatient, but if hemoglobin drops or any signs of GI bleed will have GI to see him while inpatient. Although given cardiology recommendations we will
request GI eval.
-Discussed with daughter who tells me he had upper endoscopy and colonoscopy just last year without significant findings. No evidence of hemolysis either. Possibility as an etiology of aortic valve causing anemia or slow occult bleed from small
bowel testing for which he will require capsule endoscopy and other further workup as outpatient with GI. Will refer to GI as outpatient as discussed with daughter at bedside today. Discussed with GI today on and plan for outpatient workup.
#acute hypoxic respiratory failure likely new onset CHF/chest heaviness
-chest x ray with Findings most consistent with congestive heart failure.
-BNP 1680,trop 0.019
-received a dose of Lasix in ER
-trend trop
-Lasix 40 mg p.o. daily
-obtained eCHO
-cardiology consulted
# Acute diastolic congestive heart failure
-IV diuretics, Lasix 20 mg IV twice a day-->cardiology recommends continue IV Lasix for now and probably switch to oral today-Lasix 40 mg p.o. daily.
-Monitor strict I/O
-Monitor daily weight
-Monitor renal function and electrolytes
-Reviewed latest echocardiogram on our system
-Continue guideline-directed medical therapy for heart failure (GDMT)
-Follow up clinical response
-Cardiology cleared him for discharge today on 11/29
#Severe aortic stenosis
-Will need to contemplate TAVR in the near future but will defer to cardiology--> plan for TAVR in the immediate future per cardiology
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
#Hypertension
-Norvasc continued
-rampiril continued
#AAA
#CAD with CABG
-aspirin continued
#BPH
-Flomax continued
#hypothyroidism
-levothyroxine continued
#HLD
-statin
#DVT prophylaxis: Lovenox
#CODE status
-full code
Anticipated Discharge: Today
Subjective/Interval History
-
Date of Service: November 30, 2023
Patient doing well today. No chest pain or shortness of breath. No melena or hematemesis.
Objective Data
-
Labs:
Laboratory Results
11/30/23
07:36
WBC 6.8
Hgb 8.9 L
Hct 27.7 L
Plt Count 198
Sodium 136
Potassium 3.8
Chloride 100
Carbon Dioxide 31 H
BUN 27 H
Creatinine 1.0
Glucose 88
Calcium 8.6
Vital Signs:
Vital Signs
Temp Pulse Resp BP Pulse Ox
97.3 F 46 24 138/66 98
11/30/23 07:18 11/30/23 07:18 11/30/23 07:18 11/30/23 07:18 11/30/23 07:55
I&O
11/29/23 11/30/23 12/01/23
06:59 06:59 06:59
Intake Total 360 / 360 480 / 480
Output Total 2400 / 2400 1250 / 1250
Balance -2040 / -2040 -770 / -770
--- NOTE | 2023-11-30 11:28 | W.DCSUMMARY ---
Discharge Summary
Discharge Data
Date of Admission: 11/25/23
Date of Discharge: 11/30/23
-
Pending Results: No
Hospital Course
Patient 88 years old history of CAD, bradycardia, hypertension, hyperlipidemia, aortic stenosis, thoracic aortic ectasia, hypothyroidism, BPH, presented to the hospital cough shortness of breath and generalized fatigue. Patient was found to be in
congestive heart failure. He also had an echocardiogram that revealed severe aortic stenosis which most likely was the lumber driver of his CHF. Cardiology was consulted. Patient was diuresed intravenously. He had cardiac catheterization revealed CAD,
elevated right pressures, and severe arctic stenosis. CT surgery evaluated him for TAVR and TAVR will be performed as outpatient. Discussed also with GI for possible evaluation and able to evaluation as outpatient since he is hemodynamically
stable and no active GI bleed. His hemoglobin has remained stable and upon discharge his hemoglobin is 8.9. His weight went down from 81.8 kg down to 74.9 kilograms upon discharge. He is diuretics have been switched to oral. Cardiology cleared
him for discharge today. He will be discharged in relatively stable condition today.
Discharge duration: 36 minutes
Discharge Plan
-
Patient Disposition: Home (Routine Discharge)
Discharge Diagnosis/Procedures: cardiac catheterization. Chest pain. Hypertension.
Condition: Fair
Diet: 2 Gram Sodium and Restrict fluids to 48 oz
Activity: As tolerated
Blood Work: PLEASE GET YOUR LAB WORK ON SATURDAY 12/02. Including CBC and BMP.
Others Tests: YOUR CT SCAN IS SCHEDULED FOR 12/12/2023 @ 9:45 AT [facility]. NOTHING TO EAT OR DRINK [address] SCAN. PLEASE BRING A LIST OF YOUR MEDICATIONS. YOU MAY TAKE YOUR MORNING MEDICATIONS BEFORE COMING IN.
YOU WILL DENTAL CLEARANCE PRIOR TO YOUR VALVE REPLACEMENT
Specialty Instructions: Weigh Daily- Call MD for wt gain/loss 3 lbs overnight/5 lbs in 1 week
Instructions: *PCP/Other Jigger Operator Heart Failure Instructions
Stand Alone Forms: DC Instructions- Cath/EP Lab
Referrals:
[facility] Visiting Nurse [Outside] - in one to two days
Franky Velázquez MD [Non-Admitting Privileges] - in three to four weeks
Whit Sumner MD [Active] - 12/26/23 11:30 am
Derrell Lucero DO [Family Provider] - in less than 1 week
Tye Santana MD [Active] - 12/12/23 11:00 am
Prescriptions:
New
furosemide 40 mg Tablet
40 mg PO DAILY 30 Days Qty: 30 0RF
Jardiance 10 mg Tablet
10 mg PO DAILY 30 Days Qty: 30 0RF
ferrous sulfate 325 mg (65 mg iron) tablet
325 mg PO DAILY Qty: 30 0RF
Continued
ramipril 10 MG capsule
10 mg PO DAILY
levothyroxine 25 MCG tablet
25 mcg PO DAILY
amlodipine 10 MG tablet
10 mg PO DAILY
aspirin 81 MG tablet,chewable
81 mg PO DAILY
finasteride 5 MG tablet
5 mg PO DAILY
rosuvastatin 20 MG tablet
20 mg PO QPM
Discharge Orders:
Discharge Patient (As Directed); Ordered 11/30/23
Ordered By: Gregor Bradley
Care Plan Goals
Care Plan Goals:
Problem: Readiness for enhanced knowledge related to diagnosis and treatment plan
Goal: Understand your diagnosis and treatment plan needs, including medications if applicable.
Instructions: Know your diagnosis, underlying causes and treatment plan options, including medications if applicable. Consult with your health care team to learn about your diagnosis and treatment plan, including medications if applicable.
Discharge Date and Time
Discharge Date/Time: 11/30/23 12:22
[2023-11-30 11:50] VITALS: BP 125/63
--- NOTE | 2023-11-30 12:05 | CM ---
Chart reviewed. Spoke with pt
Pt for discharge
Discussed IMM
[facility] to resume services
Plan - home with Francesca
Fax - [phone]
== END 2023-11-30 12:22 | disposition home health service (06) | DRG 286 ==
LOC: 4 WEST ACU 21:27
PROVIDERS: Clinical Nurse Specialist Family Health; Internal Medicine; Internal Medicine Cardiovascular Disease; Registered Nurse; ADMITTING PHYSICIAN Hospitalist; ATTENDING PHYSICIAN Hospitalist; EMERGENCY PHYSICIAN Student in an Organized Health Care Education/Training Program; FAMILY PHYSICIAN Family Medicine; OTHER PHYSICIAN Internal Medicine Cardiovascular Disease
PROC: 30233N1 Transfusion of Nonautologous Red Blood Cells into Peripheral Vein, Percutaneous Approach (ICD-10-PCS; 2023-11-25)
PROC: 4A023N8 Measurement of Cardiac Sampling and Pressure, Bilateral, Percutaneous Approach (ICD-10-PCS; 2023-11-26)
PROC: B2131ZZ Fluoroscopy of Multiple Coronary Artery Bypass Grafts using Low Osmolar Contrast (ICD-10-PCS; 2023-11-26)
PROC: B2181ZZ Fluoroscopy of Left Internal Mammary Bypass Graft using Low Osmolar Contrast (ICD-10-PCS; 2023-11-26)
PROC: B2111ZZ Fluoroscopy of Multiple Coronary Arteries using Low Osmolar Contrast (ICD-10-PCS; 2023-11-26)
DX: I11.0 Hypertensive heart disease with heart failure (principal); I50.31 Acute diastolic (congestive) heart failure; J96.01 Acute respiratory failure with hypoxia; E03.9 Hypothyroidism, unspecified; I25.10 Atherosclerotic heart disease of native coronary artery without angina pectoris; I35.0 Nonrheumatic aortic (valve) stenosis; D50.9 Iron deficiency anemia, unspecified; I71.40 Abdominal aortic aneurysm, without rupture, unspecified; N40.0 Benign prostatic hyperplasia without lower urinary tract symptoms; E78.00 Pure hypercholesterolemia, unspecified
CPT/HCPCS: 71046; 80048; 80053; 80061; 82248; 82607; 82728; 82746; 83540; 83550; 83735; 83880; 84443; 84484; 85025; 85027; 85045; 86850; 86900; 86901; 86920; 87811; 93005; 93306; 93457; 94640; 96374; 96375; 97116; 97162; 97166; 97530; 97535; 99285; C1769; C1894; P9016; Q9967

== ENCOUNTER → 2023-12-12 10:50 | Outpatient (REF) | payer OTHER, SELFPAY | LOC: RAD 10:50 | PROVIDERS: ATTENDING PHYSICIAN Nurse Practitioner Acute Care; FAMILY PHYSICIAN Family Medicine | DX: I35.0 Nonrheumatic aortic (valve) stenosis (principal) | CPT/HCPCS: 74174; 75572; Q9967 ==

== ENCOUNTER 2024-01-03 07:28 | Inpatient (IN) | payer OTHER, SELFPAY ==
[2023-12-24 08:40] VITALS: BMI 28.9
[2023-12-24 09:22] LABS: Urine Albumin Negative (Neg - Trace); Urine Bilirubin Negative (Negative); Urine Character Clear (Clear); Urine Color Yellow; Urine Glucose 3+ (Negative); Urine Ketone Negative (Negative); Urine Leukocyte Negative (Negative); Urine Nitrite Negative (Negative); Urine Occult Blood Negative (Negative); Urine Urobilinogen Negative (Neg - 1+)
[2023-12-24 09:25] LABS: % Eosinophils 1.1 % (0-6); % Immature Granulocytes 0.5 % (0-0.5); % Lymphocytes 16.4 % (20.5-51.1); % Monocytes 11.5 % (1.7-9.3); % Neutrophils 69.5 % (42.2-75.2); Absolute Basophils 0.1 10^3/uL (0-0.2); Absolute Eosinophils 0.1 10^3/uL (0-0.7); Absolute Monocytes 0.7 10^3/uL (0.1-0.6); Absolute Neutrophils 4.3 10^3/uL (1.4-6.5); Hematocrit 38.1 % (39.0-52.0); Hemoglobin 12.3 g/dL (13.0-18.0); Mean Corp Hgb Conc. 32.3 g/dL (33.0-37.0); Mean Corpuscular Hgb 26.6 pg (27.0-31.0); Mean Corpuscular Volume 82.3 fL (80.0-94.0); Mean Platelet Volume 9.3 fL (7.4-10.4); Nucleated Red Blood Cells % 0 % (-); Platelet Count 213 10^3/uL (130-400); Red Blood Cell Count 4.63 10^6/uL (4.70-6.10); Red Cell Dist. Width 25.9 % (11.5-14.5); White Blood Cell Count 6.2 10^3/uL (4.8-10.8)
[2023-12-24 09:46] LABS: APTT 41.3 Sec (23.4-35.0)
[2023-12-24 09:52] LABS: ALT (SGPT) 22 U/L (0-50); AST (SGOT) 28 U/L (17-59); Albumin 4.3 g/dl (3.5-5.0); Alkaline Phosphatase 55 U/L (38-126); Blood Urea Nitrogen 23 mg/dl (9-20); Calcium 9.4 mg/dl (8.4-10.2); Carbon Dioxide 30 mmol/L (22-30); Chloride 95 mmol/L (98-107); Estimated Creatinine Clearance 38 ml/min; Glucose 98 mg/dl (70-99); Sodium 134 mmol/L (135-145); Total Bilirubin 1.3 mg/dl (0.2-1.3); Total Protein 6.5 g/dl (6.3-8.2); eGFR 57.81
[2023-12-24 09:59] LABS: NT-proBNP 563 pg/ml
[2023-12-24 10:10] LABS: Glycohemoglobin (HgbA1c) 5.4 % (4.0-5.6)
[2023-12-24 10:18] LABS: Anisocytosis 1+; Hypochromasia 2+
[2023-12-24 10:19] LABS: Ovalocytes Slight; Polychromasia 1+
[2023-12-24 10:21] LABS: Acanthocytes Slight; Normal RBC Morphology No
[2023-12-24 10:22] LABS: Stomatocytes Slight
--- NOTE | 2023-12-24 10:24 | CM ---
Met with Mr. Valle and his daughter in [facility]. He states prior to admission he resides alone in a one story townhouse without any steps to enter. He states prior to admission he was independent with ambulation and adls. He states he does not have
any DME in the home. He states he has a prescription plan and uses mail order. His daughter states she will be available to check on him when he goes home. The discharge plan is to return home with family support and a home visit by the
Cardiothoracic Transitional Care Nurse when medically stable.
We reviewed pre-op and post op routines. We reviewed the shower instructions. He has the soap, written instructions and the TAVR Educational Booklet. We also reviewed restrictions including driving and lifting restrictions. Also discussed a home
visit by the Cardiothoracic Transitional Care Nurse. He is agreeable to a home visit. The plan is to for TAVR on , 01/03/24.
[2024-01-03] VITALS (27 sets, daily range): BP systolic 88–169; BP diastolic 48–73; BMI 28.3
[2024-01-03] MEDS: ANCEF 10 IV ×2 (06:00→07:00)
[2024-01-03 10:43] LABS: ACT-LR - POC 387 Seconds (116-155)
--- NOTE | 2024-01-03 11:10 | W.CVOR.SURPR ---
CVOR Surgeon Immed Pre Op
-
I have examined this patient prior to performance of the scheduled procedure.
The patient's condition is unchanged from the time of the dictated/written History and
Physical and the patient is able to undergo the scheduled procedure.
--- NOTE | 2024-01-03 11:11 | W.IMMPOSTOP ---
Surgical Immed Post Op Note
-
[id number]
STRUCTURAL HEART PROCEDURE NOTE: TAVR
Preoperative Dx:
Severe aortic stenosis (P/M: 70/40)
HFpEF
Hx of hypoxemic respiratory failure
HTN/HLD
Microcytic anemia s/p blood transfusion (11/2023)
LBBB w/ baseline bradycardia in 40s
MR
CAD s/p prior OR, s/p prior CABG (2000 @ [facility])
Skin CA
Thoracic aortic ectasia
Postoperative Dx:
Same
Procedures:
1) L CFV access w/ U/S and fluoroscopic guidance, micropuncture technique, 6Fr sheath placement
2) L TELETYPE OPERATOR access w/ tactile, U/S, and fluoroscopic guidance, micropuncture technique, limited angiography, 6Fr sheath placement
3) R TELETYPE OPERATOR access w/ tactile, U/S, and fluoroscopic guidance, micropuncture technique, limited angiography, 8Fr dilator placement
4) Placement of perclose sutures x 2 into R TELETYPE OPERATOR, 8Fr sheath placement
5) Placement of temporary RV pacing wire w/ threshold testing
6) Placement of pigtail catheter in RCC w/ limited aortography & confirmation of coplanar valve deployment angle
7) Placement of Dickens E-sheath via R TELETYPE OPERATOR (systemic heparinization)
8) Wire purchase across stenotic AV (AL-1, soft-tip straight, extra-stiff) w/ LVEDP assessment
9) R TF TAVR w/ placement of 26mm TANISHA 3 valve
10) Completion aortography
11) Completion TTE (mean gradient 6mmHg, no AI)
12) Removal of nmpos-smomyuop-navzwb & Dickens E-sheath w/ R TELETYPE OPERATOR mgmt w/ perclose sutures and manual pressure
13) Completion R ileofemoral angiography
14) Removal of temporary pacing wire
15) Removal of L TELETYPE OPERATOR 6Fr sheath w/ mgmt w/ 6Fr angioseal and manual pressure
16) Removal of L CFV 6Fr sheath w/ manual pressure
[employer] Set Up Technician:
Dr. Familia Joiner
Cardiac Surgeon:
Dr. Rylan Olivarez
Anesthesia:
MAC & local to B/L groins
Implants:
Dickens Lifesciences, 26mm Model [id number], Serial [id number]
Perclose x 2
6Fr angioseal x 1
Complications:
None
Cath Data:
Start: 1013hrs, Deploy: 1044hrs, End: 1107hrs
FT: 10.1min, mGy: 422.98, DAP: 44.39, Contrast: 82mL
Post-TTE: mean 6mmHg, no AI
Condition:
Stable/guarded to recovery
--- NOTE | 2024-01-03 11:17 | W.PN.UPDATE ---
Update Note
Progress Note Update
Reviewed MR. Valle with the heart team in the preTAVR SDM meeting and confirmed a 26mm S3 via right transfemoral access. He will resume 81 mg aspirin post TAVR. LVEDP 16mmHg. #26mm S3 (serial# [id number]) successfully deployed via (R) TF access. Post
implant MG 6mmHg.
--- NOTE | 2024-01-03 11:18 | ITS.CL.TAVR ---
Rod Straightener - TAVR Report
TAVR PRocedure
Procedure Report:
TRANSCATHETER AORTIC VALVE REPLACEMENT REPORT
Date: 01/03/2024
Referring physician: Franky Velázquez M.D.
Preop diagnosis: Severe aortic valve stenosis.
Postop diagnosis: Severe aortic valve stenosis.
Procedure: Transcatheter aortic valve replacement (TAVR) using a # 26 Dickens DONALDO S3 Ultra.
Operators: Familia Joiner DO, Matthew Thomas, M.D.
Findings: Severely calcified and stenotic aortic valve.
Anesthesia: Conscious sedation was provided by the anesthesia staff.
Estimated blood loss: Negligible.
Complications: None.
Condition: Stable
Procedure:
The patient was brought to the cardiac bolt labeler after consent and was prepped and draped in standard sterile fashion. Conscious sedation was provided by the anesthesia staff. After a 'Time Out,' bilateral common femoral arteries and the left
common vein were access using a modified Seldinger technique with a micropuncture kit under ultrasound guidance. A 6 Emirati sheath was placed in the left femoral vein. Angiography performed through the micropuncture sheath confirmed satisfactory
arterial placement in the left common femoral artery. The micropuncture sheath was replaced with a 6Fr sheath in the left VMWARE ADMINISTRATOR. Angiography through the micropuncture kit confirmed satisfactory arterial placement in the right common femoral artery.
The right VMWARE ADMINISTRATOR was dilated with an 8FR dilator and preclosed with two Perc-Close devices. An 8Fr sheath was placed in the RCFA. A temporary pacing wire was advanced through the left femoral vein and into the right ventricle. The pacemaker
demonstrated good capture and was set to back up. A 5Fr pigtail catheter was advanced through the left femoral sheath and seated in the right coronary cusp. Angiography confirmed co-planar angles.
An AL-1 catheter was advanced through the 8Fr sheath, the J wire was exchanged for an Amplatz Superstiff wire and the catheter and the 8 Fr sheath was removed. The 14 Fr Dickens E-sheath was inserted over the wire and into the descending aorta.
Heparin 6000 units was given. The DONALDO S3 was prepared on the back table. Orientation was confirmed by both physicians. The AL-1 catheter was re-advanced through the E-sheath to the level of the ascending aorta. The Superstiff wire was removed
and a soft tip straight wire was advanced through the AL-1. The straight tip wire was used to cross the aortic valve and the catheter was advanced into the left ventricle. The straight wire was removed and an Amplatz Extrastiff wire with curved
proximal end was advanced through the catheter and into the left ventricle. The wire was seated in the apex and the catheter was removed. ACT was checked and confirmed to be > 250 seconds.
The valve was advanced over the Extrastiff wire and into the descending aorta. The balloon was withdrawn and the valve was mounted on the balloon. The valve was advanced over the aortic arch and into the aortic valve annulus. The pusher device
was withdrawn to allow for balloon expansion. Low volume aortography confirmed good position of the valve. The valve was deployed during rapid ventricular pacing. Echocardiography and aortography confirmed a good result with mild aortic valve
insufficiency due to the extra-stiff wire and a 6 mmHg mean gradient. The wire was removed from the left ventricle, resolving the aortic valve insufficiency. The valve deployment system was removed. The Dickens E sheath was then removed and
hemostasis obtained with the two Perc-Close sutures. Final angiography demonstrated no evidence of ileofemoral dissection/perforation and good runoff below the common femoral artery. The pacemaker and the pigtail catheter were removed. The left
femoral artery sheath was removed using a 6 Emirati Angio-Seal. The left femoral venous sheath was removed and manual pressure was applied with excellent hemostasis.
Radiation
Dose (mGy): 422.98
DAP (cm2.Gy): 44.39
Fluoroscopy time (minutes): 10.1
TAVR Echo Gradient (mmHg): 6
LV (s/x, mmHg): 152/16
TAVR Cath Gradient (mmHg): Not obtained.
Conclusions:
1. Successful placement of # 26 Donaldo S3 Ultra aortic valve via right transfemoral approach with no acute complications.
Familia Joiner, DO, FACC, FACP
Copy to: Franky Velázquez M.D., Derrell Lucero D.O., Rylan Olivarez M.D.
--- NOTE | 2024-01-03 13:17 | PTCARENOTE ---
Reieved patient post TAVR in recovery room at 1135. Attached patient to monitor, pt's heart rate 28-32. Dr Joiner made aware, EKG obtained. Pt to remain NPO for pacemaker. CT pa Irma at bedside patients pacer pads attached to pace transcutaneous
pacing at 40 as ordered. Pt comfortable denies any pain with being transcutaneously paced. Levophed weaned to off and remains off. Pt's 2 daughter at bedside and updated on patients status and plan of care. Pt remains stable at this time. Will
continue to monitor and keep NPO as ordered.
--- NOTE | 2024-01-03 15:26 | ITS.CL.PACE ---
Packaging Coordinator - Pacemaker Implant
Pacemaker Implant
Procedure Report:
Dual Chamber Pacemaker Placement:
Mr. Valle is a very pleasant 88 yrs old gentleman with who presented with history of CAD, bradycardia, hypertension, hyperlipidemia, thoracic aortic ectasia, hypothyroidism, BPH with severe and sick sinus syndrome with baseline bradycardia has
undergone TAVR and is noted to have severe sinus bradycardia with cutaneous pacing pads placed and is recommended for PPM placement.�
Indications: Sick Sinus syndrome
Date of the Procedure: 01/03/24
Pre-Operative Diagnosis: Sick Sinus syndrome
Post-Operative Diagnosis: Sick Sinus syndrome
Procedure Performed: DUAL CHAMBER PACEMAKER IMPLANTATION
Performing Physician:
Yojana Conde MD
Assistants:
EP staff
Anesthesia:
See anesthesia report
Pre-operative antibiotics:
Ancef
Detailed Description of the Procedure:
The patient was identified using hospital identification and informed consent obtained for the procedure. The risks were explained including, but not limited to: Bleeding, infection, arrhythmia, stroke, vascular/cardiac/lung puncture, surgery,
pacemaker dependency/device malfunction. All questions were answered.
The patient was brought to the electrophysiology laboratory in stable condition in fasting state. Continuous electrocardiographic and hemodynamic monitoring was initiated.
The initial rhythm was trans cutaneous paced rhythm.
A surgical pause and time out was performed immediately prior to the procedure with review of her medical history, recent labs, allergies and medications with site of procedure identified and consent noted in the chart. Antibiotics pre operatively
given. All team members concurred.
The procedure site was meticulously prepared with surgical scrub and allowed to dry with no pooling. Sterile draping was applied to cover the procedure site. The image intensifier was draped with sterile bag and positioned over the patient.
The left infraclavicular region was prepped and draped in the usual sterile fashion. Local anesthesia was administered subcutaneously using 1% lidocaine / Bupivacaine. The left cephalic vein cutdown was performed with an incision at the
delto-pectoral groove, and vascular sheaths were introduced for lead access. These were advanced into the right ventricle and the right atrium.
The right ventricular lead was secured in position with an active fixation technique at the apical septal location.
The RA lead was attached in the right atrial appendage with active fixation.
There was excellent sensing, pacing, and impedance from the leads, with no diaphragmatic stimulation at 10 V output.�Bovie cautery, antibiotics, and fluoroscopy were used.
The sheaths were withdrawn, and the thresholds remained acceptable. The leads were secured in position at the venous entry site with 0-silk. A pocket was fashioned contiguous to the incision. The electrode terminals were connected to the pulse
generator, which was placed into the pocket. The wound was irrigated thoroughly with antibiotic solution.
The wound was closed in 3 layers using 2-0 V loc then two layers of 4-0 V loc sutures to the dermis. Steri-strips were applied externally and covered with Aquacel bandage.
Procedure End:
The procedure was tolerated well.
Estimated Blood loss:
10 cc
Specimens Removed:
No cultures and no specimens were obtained. No intraoperative pathology was identified.
Fluoro time:
1.9 min / 5.28mGy
Urine output:
None
Packs / Drains/ Tubes:
None
Instrument / Sponge Count Correct:
Yes
Complications of the Procedure:
None
Condition of Patient at Time of Transfer:
Hemodynamically stable with no neurological or vascular compromise.
Device information:�
Generator: [employer]; Model: W1DR01; Serial # [id number]�
Atrial Lead:
[employer]; Model: 5076-45; Serial # [id number]�
Measured data in the right atrium was sensing of 1.9 mV, impedance of 399 ohms and threshold of 0.75 V at 0.4ms.
RV Lead:
[employer]; Model: 5076-52; Serial # [id number]
Measured data in the RV lead was sensing of 5.4mV, impedance of 570 ohms and threshold of 0.5 V at 0.4ms�
Georges parameter settings were AAIR < = > DDDR 60-130 bpm. �
����������� Mode Switch: On
����������� Paced AV interval: 180ms
����������� Sensed AV interval: 150 ms.
����������� Rate Adaptive A-V Interval: Off
Output parameters:
����������������������� Amplitude (V)������������� Pulse Width (ms)������� Sensitivity (mV)
����������� RA: ���� 3.5 ����������������� ����������� 0.4������������������ ����������� 0.3
����������� RV:����� 3.5������������������ ����������� 0.4������������������ ����������� 0.9
Summary:
Successful implantation of MRI compatible Medtronic dual chamber pacemaker
Results/Recommendations:
-Please follow up CXR�
1. Please provide patient with adequate pain control�
Instructions to be given to patient:�
- Please follow up with [facility] at [address] [place] [address] ([phone]) to get your wound checked within 14 days of your discharge.
- Do not wet incision site until after it is evaluated at cardiology clinic. No soaking or bath until then. Showers or Sponge baths are OK.�Dab dry the area after a shower.
- Do not lift left elbow above shoulder, particularly with sudden jerking movements, for 1 month�
- Do not lift anything weighing more than 10 pounds with the left arm for 1 month�
- If you notice any fevers, shortness of breath, lightheadedness, chest pain, or worsening swelling in the wound site, please contact the arrhythmia clinic, contact your president & founder, or present to the hospital for evaluation.�
Yojana Conde MD
Electrophysiology
--- NOTE | 2024-01-03 15:47 | CM ---
Reviewed chart. Mr. Valle is in the operating room today. Prior to admission he resides alone in a one story home without any steps to enter. Prior to admission he was independent with ambulation and adls. Prior to admission he was independent
with ambulation and adls. He does not have any DME in the home. He has a prescription plan and uses mail order. His daughter will be available to check in on him when he goes home. Medical work-up in progress. The discharge plan is to return home
with family support and a home visit by the Cardiothoracic Transitional Care Nurse when medically stable.
[2024-01-03] MEDS: SYNTHROID PO (17:02)
--- NOTE | 2024-01-03 17:20 | PTCARENOTE ---
Received patient from EP lab after pacer placement left upper chest. Patient had TAVR done earlier today and taken for PPM after TAVR procedure. Patient is AAO, neuro status stable. Pressure dressing left upper chest is dry and intact with
immobilizer in place. Post EKG done. Dressings bilateral groins are dry and intact after TAVR procedure with strong pedal pulses and trace ankle edema noted. Daughters at the bedside, VSS, patient ate dinner. Will continue to monitor.
[2024-01-03] MEDS: ALTACE PO (17:33)
[2024-01-03] MEDS: LASIX PO (17:33)
[2024-01-03] MEDS: NORVASC PO (17:33)
--- NOTE | 2024-01-03 17:33 | PTCARENOTE ---
Daily antihypertensives and lasix ordered to start now, as per CT surgery PA ok to start in the AM as per the patient's schedule. BP 115/65 at this time.
[2024-01-03] MEDS: CRESTOR 20 MG PO (17:57)
[2024-01-03] MEDS: ANCEF 5 IV (22:33)
--- NOTE | 2024-01-03 23:29 | PTCARENOTE ---
patient resting in bed comfortably. ambulated to the BR with a standby assist. oral care completed per patient. urinating yellow urine in the urinal. denies any lightheadedness/dizziness. neuro intact. Apaced on tele-60s. bp stable. PPM site intact,
soft. L arm immobilizer intact. reviewed activity restrictions with patient and verbalized understanding. b/l groin sites CDI. + pulses. trace LE edema. call major in reach. educated patient to inform RN with any changes.
--- NOTE | 2024-01-04 01:19 | W.PN.CT ---
Addendum entered and electronically signed by Rylan Olivarez MD 01/04/24 09:00:
I saw and examined the patient.
The PA's note was reviewed and I agree with the note.
Comment: Doing well
- Echocardiogram today
- ASA only
- PPM mgmt per EP
- D/C planning for hopefully later today
Original Note:
Today's Communication / Plan
-
-pod #1
-no significant issues overnight.
-b/l groins and PPM site are stable.
-AV paced overnight
-EKG, chest x-ray and echo today
-Continue home medications
-appreciate Cardiology input
-encourage IS and ambulation
-Possible DC after echo
Assessment / Plan
-
Severe aortic stenosis
Heart failure with preserved ejection fraction
History of hypoxemic respiratory failure
Hypertension
Hyperlipidemia
Microcytic anemia status post blood transfusion in November 2023
Left bundle branch block with baseline bradycardia in 40s
Mitral regurgitation
CAD status post prior NC and CABG in 2000
Skin carcinoma
Thoracic aortic ectasia
Sick sinus syndrome
Postoperative bradycardia requiring intermittent transcutaneous pacing
Subjective
Procedure
S/p right transfemoral transcatheter aortic valve replacement with placement of #26 mm TANISHA [address] Olivarez; POD #1
S/p Left anterior chest wall dual-chamber pacemaker implantation with Dr. Conde; POD #1
-
Date of Service: January 04, 2024
Objective Data
-
01/04/24 03:50
01/04/24 03:50
PT 13.0 Sec (11.4-14.6) 12/24/23 08:52
INR 1.00 12/24/23 08:52
APTT 41.3 Sec (23.4-35.0) H 12/24/23 08:52
Vital Signs
Vital Signs
Temp Pulse Resp BP Pulse Ox
97.8 F 62 20 124/67 98
01/03/24 22:27 01/03/24 23:30 01/03/24 22:27 01/03/24 22:23 01/03/24 23:36
CT Intake/Output/Weight
01/03/24 01/03/24 01/04/24
06:59 18:59 06:59
Intake Total 240 / 440 200 / 440
Output Total 300 / 925 625 / 925
Balance -60 / -485 -425 / -485
SaO2: 98
Physical Exam
-
General: AOx3
Cardiovascular: Regular rate & rhythm
Respiratory: Clear
Sternum: Stable
Incision: Clean
Data Reviewed
-
Lab Results: Results Reviewed
Medications: Active Meds Reviewed
Chest X-Ray: Report Reviewed
[2024-01-04 03:46] VITALS: BP 150/81
[2024-01-04 03:52] VITALS: BP 150/77
[2024-01-04 04:08] LABS: Hematocrit 35.9 % (39.0-52.0); Hemoglobin 11.5 g/dL (13.0-18.0); Mean Corpuscular Hgb 27.3 pg (27.0-31.0); Mean Corpuscular Volume 85.1 fL (80.0-94.0); Mean Platelet Volume 8.9 fL (7.4-10.4); Platelet Count 148 10^3/uL (130-400); Red Blood Cell Count 4.22 10^6/uL (4.70-6.10); White Blood Cell Count 11.4 10^3/uL (4.8-10.8)
[2024-01-04 04:59] LABS: Blood Urea Nitrogen 27 mg/dl (9-20); Calcium 8.9 mg/dl (8.4-10.2); Carbon Dioxide 21 mmol/L (22-30); Chloride 105 mmol/L (98-107); Estimated Creatinine Clearance 47 ml/min; Glucose 98 mg/dl (70-99); Potassium 4.6 mmol/L (3.5-5.1); Sodium 134 mmol/L (135-145); eGFR > 60.00
[2024-01-04] MEDS: SYNTHROID 25 MCG PO (05:05)
--- NOTE | 2024-01-04 05:10 | PTCARENOTE ---
Addendum entered by Jeronimo Watson RN 01/04/24 06:07:
R groin site CDI. no oozing noted.
Original Note:
during morning rounds, R groin site dressing saturated. manual pressure applied for 10 minutes. hemostasis pad applied with new dressing. site soft all around, no evidence of hematoma. patient denies abdominal pain. palpable DP pulses. will recheck
dressing. educated patient to keep limb straight at this time. verbalized understanding.
neuro intact. HR Paced 60s. bp stable. denies any pain. L chest site intact. reviewed activity restrictions with patient and verbalized understanding.
[2024-01-04] MEDS: ANCEF 5 IV (05:56)
[2024-01-04 06:00] VITALS: BMI 28.5
[2024-01-04 07:08] VITALS: BP 121/68
--- NOTE | 2024-01-04 07:08 | W.PN.CD ---
Today's Communication / Plan
-
Echocardiogram pending.
Resume home medications.
Please schedule outpatient cardiology follow up with CBC x1 for PPM site check, then routine follow up with CCP (Dr. Velázquez).
Discharge planning.
Impression / Plan
-
Impression/Plan: 88 y/o male with HTN, HLD, anemia, HFpEF and severe admitted for elective TAVR.
#Severe
-S/P #26 Dickens DONALDO S3 ultra via right transfemoral approach.
-Post procedure, the patient lapsed into sinus node dysfunction.
-Bilateral access sites are C/D/I.
-Antithrombotic therapy with aspirin.
-Post procedure TTE pending.
#Sinus node dysfunction
-Chronic, accelerating.
-Patient was bradycardic into the 30's post procedure (required dobutamine during TAVR).
-Given progression of sinus node dysfunction, EP felt that PPM was appropriate. PPM placed yesterday afternoon.
#Fe Deficiency Anemia
-Chronic, improved.
-Previous GI workup - unrevealing.
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
-Maintain ferrous sulfate.
#CAD
-Chronic, stable.
-S/P CABG (patient PATEL to LAD, SVG to OM, SVG to RPDA).
-Continue aspirin, rosuvastatin.
-Not on metoprolol due to absence of angina, bradycardia.
#Chronic HFpEF
-LVEDP 16 mmHg during TAVR.
-GDMT as hemodynamics will tolerate.
#HTN
-Chronic, stable.
-Resume home ramipril, amlodipine.
#HLD
-Chronic, stable.
-Home rosuvastatin.
#PPx
-SCD's for DVT/VTE.
-No role for PPI.
#Dispo
-IVU Status.
-Discharge planning.
Subjective/Interval History:
Successful TAVR yesterday.
Post procedure, the patient's sinus node dysfunction became manifest. PPM placed yesterday afternoon.
DATA:
PPM, 01/03/2024:
Generator: Medtronic; Model: W1DR01; Serial # [id number]�
Medtronic; Model: 5076-45; Serial # [id number]�
[employer]; Model: 5076-52; Serial # [id number]
TAVR, 01/03/2024:
Conclusions:
1. Successful placement of # 26 Donaldo S3 Ultra aortic valve via right transfemoral approach with no acute complications.
Physical Exam
Vital Signs/Labs
Vital Signs
Temp Pulse Resp BP Pulse Ox
36.6 C 64 18 150/77 96
01/04/24 03:55 01/04/24 04:45 01/04/24 03:55 01/04/24 03:52 01/04/24 03:55
01/02/24 01/03/24 01/04/24
11:59 11:59 11:59
Actual Weight 74.7 kg 75.3 kg
01/04/24 03:50
01/04/24 03:50
PT 13.0 Sec (11.4-14.6) 12/24/23 08:52
INR 1.00 12/24/23 08:52
APTT 41.3 Sec (23.4-35.0) H 12/24/23 08:52
12/24/23
08:52
[id number]-M-[id number] Pept 563
Physical Exam
Constitutional: No acute distress and Comfortable
EENT: Anicteric and Moist mucous membranes
Cardiovascular: Rhythm & rate is regular, Pedal edema is absent, JVD pressure is normal, S1S2 is normal and Murmur/rub/gallop absent
Respiratory: Respiratory effort normal, Lungs clear to auscul., Wheeze Absent, Crackles Absent and Rhonchi Absent
GI: Soft, Distention absent, Flat, Non tender and Normal bowel sounds
Neuro/Psych: AO x 3
Other: Cath Site (Bilateral femoral access sites are C/D/I.) and Cardiac Device Site (PPM site under bandage - non-tender.)
Data Reviewed
-
Date of Service: January 04, 2024
Medical Decision Making: Reviewed Test Results, Independent Historian Assessment and Test Interpretation
EKG: Tracing Personally Visualized and interpreted and Report Reviewed by me
Echo: Tracing Personally Visualized and interpreted and Report Reviewed by me
X-Ray/CT/US/MRI/NUC/PET: Image Personally Visualized and interpreted and Report Reviewed by me
Medical Tests (PFT, Pathology etc): Image Personally Visualized and interpreted and Report Reviewed by me
Labs: Labs Reviewed by me
[2024-01-04] MEDS: LASIX 40 MG PO (09:17)
[2024-01-04] MEDS: JARDIANCE 10 MG PO (09:17)
[2024-01-04] MEDS: ALTACE 10 MG PO (09:17)
[2024-01-04] MEDS: NORVASC 10 MG PO (09:17)
[2024-01-04] MEDS: LOW STRENGTH ASPIRIN 81 MG PO (09:17)
[2024-01-04] MEDS: PROSCAR 5 MG PO (09:18)
--- NOTE | 2024-01-04 09:18 | CM ---
Reviewed chart. Met with Mr. Valle to review discharge plans. He states he is feeling well and maybe able to go home soon. He states he has been ambulating in the room. We reviewed a home visit by the Cardiothoracic Transitional Care Nurse. He is
agreeable to a home visit. [place] to [place]. Prior to admission he was independent with ambulation and adls. He does not have any DME in the home. He has a prescription plan
and uses mail order. His family will check in on him when he goes home. Medical work-up in progress. The discharge plan is to return home with family support and a home visit by the Cardiothoracic Transitional Care Nurse when medically stable.
[2024-01-04 11:38] VITALS: BP 130/65
[2024-01-04 11:46] VITALS: BP 130/55
[2024-01-04 11:55] VITALS: BP 130/65; BP 138/64; PULSE 60; O2SAT 96; O2SAT 98
--- NOTE | 2024-01-04 12:32 | W.PN.ANS.POP ---
Anesthesia Post Operative
- Anesthesia Post Op Note
Vital Signs Stable-See Nursing Note: Yes
Airway Patent: Yes
Adequate Pain Control: Yes
Change in Mental Status: No
Current Postoperative Nausea & Vomiting: No
Anesthesia Complications: No
General Anesthetic Recall: No
Unplanned Admission: No
Post Op Hydration Adequate: Yes
--- NOTE | 2024-01-04 13:28 | W.DCSUMMARY ---
Discharge Summary
Discharge Data
Date of Admission: 01/03/24
Date of Discharge: 01/04/24
-
Pending Results: No
Hospital Course
Primary care physician: Derrell Lucero
Outpatient compressed gas tester: Franky Velázquez
Inpatient consultants: [facility] cardiology
Procedures:
1. 01/03/24 Right transfemoral transcatheter aortic valve replacement with 26mm Dickens S3 valve by Drs. Rylan Olivarez and Héctor Joiner
Primary Diagnosis:
1. severe aortic stenosis
Secondary Diagnoses:
1. Heart failure with preserved ejection fraction
2. History of hypoxemic respiratory failure
3. Hypertension
4. Hyperlipidemia
5. Microcytic anemia status post blood transfusion in November 2023
6. Left bundle branch block with baseline bradycardia in 40s
7. Mitral regurgitation
8. history of myocardial infarction & coronary artery disease status post coronary artery bypass grafting in 2000
9. Skin carcinoma
10. Thoracic aortic ectasia
11. postoperative Sick sinus syndrome
12. Postoperative bradycardia requiring intermittent transcutaneous pacing
HPI: Pt is an 88y/oM with known progressive aortic stenosis & recent admission for heart failure with preserved EF. Pt referred for elective TAVR.
Hospital course: Pt admitted electively on 01/03/24 for Right transfemoral TAVR by Drs. Rylan Olivarez & Héctor Joiner. This was completed without complication under conscious sedation. Postoperatively pt was noted to have significant bradycardia with
heart rates in the 20s-30s. Postop EKG demonstrated slow afib with VR of 39bpm. EP was urgently consulted, pt required intermittent transcutaneous pacing. Urgent PPM (Medtronic) placed by Dr. Conde without complication for sick sinus syndrome. Pt
remained stable overnight. On Postoperative day #1 he remains hemodynamically stable, pacing appropriately. PPM interrogated by [employer] rep. Follow up echo demonstrates well seated TAVR with MG of 12mmHg and no AI. Pt planned for discharge to home
with close follow up with the transitional care nurse from . Visiting RN will perform wound check of pacer site. No changes were made to his home medications.
Home medication changes: no med changes, see list below.
Discharge Plan
-
Patient Disposition: Home (Routine Discharge)
Discharge Diagnosis/Procedures: TF TAVR
Condition: Good
Diet: Low Fat, Low Cholesterol and 2 Gram Sodium
Activity: As tolerated
Driving Restrictions: No driving for 1 week
Bathing Restrictions: OK to Shower
Others Tests: Please make an appointment with Dr. Velázquez's office to have your follow up echocardiogram completed in one month.
Other Services: Cardiac Rehab
Wound Care: No lotions, creams, or powders to puncture sites
Specialty Instructions: Weigh Daily- Call MD for wt gain/loss 3 lbs overnight/5 lbs in 1 week
Stand Alone Forms: DC Inst - Implanted Device
Referrals:
CT Transitional Care Nurse [Outside] - in one to two days
(
The Cardiothoracic Transitional Care Nurse will call you to set up a visit in 1-2 days.)
[facility] Cardiac Rehab [Outside] - 02/05/24 1:00 pm
(Cardiac Rehab Orientation appointment is on 02/05/24 at 1:00 pm
The Cardiac Rehab gym is located on the first floor of the [facility].)
Franky Velázquez MD [Non-Admitting Privileges] - 02/04/24 2:20 pm
Derrell Lucero DO [Family Provider] - in four to six weeks (Please make an appointment in four to six weeks. )
Prescriptions:
New
acetaminophen 325 mg Tablet
650 mg PO Q6HPRN PRN (Reason: ONOFRE, mild pain, or fever >101F) Qty: 0 0RF
Continued
ramipril 10 MG capsule
10 mg PO DAILY
levothyroxine 25 MCG tablet
25 mcg PO DAILY
amlodipine 10 MG tablet
10 mg PO DAILY
aspirin 81 MG tablet,chewable
81 mg PO DAILY
finasteride 5 MG tablet
5 mg PO DAILY
rosuvastatin 20 MG tablet
20 mg PO QPM
furosemide 40 mg Tablet
40 mg PO DAILY 30 Days Qty: 30 0RF
Jardiance 10 mg Tablet
10 mg PO DAILY 30 Days Qty: 30 0RF
ferrous sulfate 325 mg (65 mg iron) tablet
325 mg PO DAILY Qty: 30 0RF
Discharge Orders:
Discharge Patient (As Directed); Ordered 01/04/24
Ordered By: Grace Aviles
Care Plan Goals
Care Plan Goals:
Problem: Readiness for enhanced knowledge related to diagnosis and treatment plan
Goal: Understand your diagnosis and treatment plan needs, including medications if applicable.
Instructions: Know your diagnosis, underlying causes and treatment plan options, including medications if applicable. Consult with your health care team to learn about your diagnosis and treatment plan, including medications if applicable.
Discharge Date and Time
Print Language: TAJIK
--- NOTE | 2024-01-04 14:15 | PTCARENOTE ---
D/C instructions discussed w/pt & both daughters. Pt & daughters verbalized understanding. Pt's IV line & telemetry monitoring discontinued. Pt left w/personal belongings including cell phone & clothing.
== END 2024-01-04 14:40 | disposition home or self-care (01) | DRG 267 ==
LOC: IVU 07:28
PROVIDERS: Internal Medicine Cardiovascular Disease; Physician Assistant Surgical; ADMITTING PHYSICIAN Thoracic Surgery (Cardiothoracic Vascular Surgery); FAMILY PHYSICIAN Family Medicine
PROC: 02H63JZ Insertion of Pacemaker Lead into Right Atrium, Percutaneous Approach (ICD-10-PCS; 2024-01-03)
PROC: 02RF38Z Replacement of Aortic Valve with Zooplastic Tissue, Percutaneous Approach (ICD-10-PCS; 2024-01-03)
PROC: 02HK3JZ Insertion of Pacemaker Lead into Right Ventricle, Percutaneous Approach (ICD-10-PCS; 2024-01-03)
PROC: 0JH606Z Insertion of Pacemaker, Dual Chamber into Chest Subcutaneous Tissue and Fascia, Open Approach (ICD-10-PCS; 2024-01-03)
DX: I35.0 Nonrheumatic aortic (valve) stenosis (principal); I50.32 Chronic diastolic (congestive) heart failure; I11.0 Hypertensive heart disease with heart failure; E78.5 Hyperlipidemia, unspecified; D50.9 Iron deficiency anemia, unspecified; I44.7 Left bundle-branch block, unspecified; I49.5 Sick sinus syndrome; I25.10 Atherosclerotic heart disease of native coronary artery without angina pectoris; I77.810 Thoracic aortic ectasia; I34.0 Nonrheumatic mitral (valve) insufficiency; I48.91 Unspecified atrial fibrillation; I25.2 Old myocardial infarction; Z79.82 Long term (current) use of aspirin; Z79.84 Long term (current) use of oral hypoglycemic drugs; Z79.899 Other long term (current) drug therapy; Z95.1 Presence of aortocoronary bypass graft
CPT/HCPCS: 93308; 33208; 33361; 36415; 71045; 71046; 80048; 80053; 81003; 82248; 83036; 83880; 85025; 85027; 85347; 85610; 85730; 86850; 86900; 86901; 87070; 93005; 93306; 93321; 93325; C1760; C1769; C1785; C1892; C1894; C1898; Q9967